=== PATIENT | male | born 1960 | race Caucasian/White ===

== ENCOUNTER 2019-05-23 04:47 | Inpatient (IN) | payer OTHER ==
[2019-05-23] VITALS (54 sets, daily range): BP systolic 89–191; BP diastolic 47–93
[~2019-05-23] VITALS: Ht 193 cm; Wt 129.9 kg
--- NOTE | ~2019-05-23 | HC ---
[facility] [place] [address] CONSULTATION Name: CATHI WINTERS Room #: 404-P [facility] IN ..#: [id number] Admission: 05/23/19 Attend Phys: Emilio Lux MD Discharge: Date of : 58 Report #: [id number] THIS REPORT FOR: //name// CC: Emilio Lux [facility] physician/PCP Roque Salazar DATE OF SERVICE: 06/08/2019 HISTORY OF PRESENT ILLNESS: This is a 59-year-old male originally admitted unresponsive on 05/23/[address] with noted seizure on the way to the hospital. History of ETOH abuse, had increased usage prior to admission. He was noted to have vomiting with concern with aspiration. He was diagnosed with an acute metabolic encephalopathy. He had acute respiratory failure, heart rate initially was in the 20s. He had severe lactic acidosis, history of diabetes mellitus with diabetic ketoacidosis. He was extubated on 06/01/2019. Antibiotics discontinued on 06/04/2019. Diabetic ketoacidosis was noted to have resolved. He has a resolving toxic metabolic encephalopathy. He has had some electrolyte abnormalities, which have improved. Bradycardia, is stable. We are seeing him in rehabilitation medicine consultation. PRIOR MEDICAL HISTORY: As delineated. He has a history of diabetes mellitus, coronary artery disease with prior PCI, and history of hypertension. FAMILY HISTORY: Noncontributory. SOCIAL HISTORY: He lives in a house with either one of his sisters, did not utilize gait aids premorbidly. There are 4 steps in. History of ETOH abuse 10 beers daily. He is home during the day, usually there is a [id number] that is there with him. He is noted to be unemployed. REVIEW OF SYSTEMS: He has some bilateral feet numbness, tingling and discomfort. No current complaints of chest pain, shortness of breath or abdominal discomfort. PHYSICAL EXAMINATION: GENERAL: He is an obese 59-year-old male, in no obvious distress. He is pleasant and alert. There is some latency to his responses. VITAL SIGNS: Temperature 98.4, pulse 90, respirations 18, blood pressure 157/82. HEENT: Facies are symmetric. EXTREMITIES: He has functional range of motion of both upper extremities. Strength is grade 4-/5. DTRs are trace to 1. Lower extremities: He has some decreased sensation bilateral large toes. 1+ distal lower extremity edema. Tone appeared to be intact. Strength is probably a grade 3+ to 4-/5. Sit to stand is min assist. Gait 130 feet min assist. He was noted to have some [address] [address] CONSULTATION Name: CATHI WINTERS Room #: 404-P [facility] IN .R.#: [id number] Admission: 05/23/19 Attend Phys: Emilio Lux MD Discharge: Date of : 58 Report #: [id number] impulsivity with lack of insight and is currently on a mechanical soft nectar thickened liquid diet. ASSESSMENT: A 59-year-old male with the following problems: 1. Toxic metabolic encephalopathy appears to be improved. 2. Acute respiratory failure. 3. ETOH abuse. 4. Diabetic ketoacidosis, which has resolved. 5. History of diabetes mellitus. 6. Concern with aspiration pneumonia. 7. Electrolyte abnormalities. 8. Alcohol detoxification/psychiatry involvement. PLAN: We are considering the patient for an acute in-hospital inpatient rehabilitation stay. We will be glad to follow along with you regarding his rehab therapy needs. He is making functional improvements with his mobility. We will be glad to follow along with you. By: 1201 1401 Cathi Artis MD /nt
[2019-05-23 05:16] LABS: HEMATOCRIT 52.2 % (42.0-52.0); HEMOGLOBIN 15.6 gm/dL (14.0-18.0); MCH 29.9 pg (26.0-34.0); MCHC 29.9 g/dL (28.0-37.0); MCV 99.8 fL (80.0-100.0); PLATELET COUNT 198 thou/uL (150-400); RBC 5.23 mil/uL (4.50-6.00); RDW 15.2 % (10.5-14.5); WBC 11.6 thou/uL (4.0-11.0)
[2019-05-23 05:17] LABS: HCO3 11.3 mmol/L (22.0-26.0); PCO2 46.8 mmHg (35.0-45.0); sO2 99.8 % (92.0-98.0)
[2019-05-23 05:19] LABS: pH 7.001 (7.360-7.450)
[2019-05-23 05:33] LABS: ANION GAP 29 mmol/L (7-16); BUN 13 mg/dL (7-18); CALCIUM 9.4 mg/dL (8.5-10.1); CHLORIDE 95 mmol/L (98-107); CO2 12 mmol/L (21-32); CREATININE 1.6 mg/dL (0.7-1.3); MAGNESIUM 1.9 mg/dL (1.8-2.4); POTASSIUM 5.1 mmol/L (3.5-5.1); SODIUM 136 mmol/L (136-145); TROPONIN-I <0.06 ng/mL (<0.06)
[2019-05-23 05:39] LABS: GLUCOSE 739 mg/dL (74-106); SALICYLATE 8.5 mg/dL (2.8-20.0)
[2019-05-23 05:58] LABS: URINE BILIRUBIN NEGATIVE (Negative); URINE BLOOD 2+ (Negative); URINE CLARITY SL CLOUDY; URINE COLOR YELLOW; URINE GLUCOSE-RANDOM* 3+ (Negative); URINE KETONES NEGATIVE (Negative); URINE LEUKOCYTES-REFLEX NEGATIVE (Negative); URINE NITRITE-REFLEX NEGATIVE (Negative); URINE PROTEIN (DIPSTICK) 1+ (Negative); URINE UROBILINOGEN 0.2 E.U./dl (0.2-1.0)
[2019-05-23 06:04] LABS: URINE REDUCING SUBSTANCE >2 %
[2019-05-23 06:07] LABS: AMP/METHAMP Negative (Negative); BARBITURATES Negative (Negative); BENZODIAZEPINES Negative (Negative); COCAINE Negative (Negative); METHADONE Negative (Negative); OPIATES Negative (Negative); PCP Negative (Negative)
[2019-05-23 06:20] LABS: SQUAMOUS 0-3 Few /LPF (0-3)
[2019-05-23 06:21] LABS: BACTERIA-REFLEX 1-9 Few /HPF (None Seen); CASTS None Seen /LPF (None Seen); CRYSTALS None Seen /LPF (None Seen); MUCUS 0-3 Light strn/LPF (None Seen); URINE RBC 3-10 Few /HPF (0-2); URINE WBC-REFLEX 0-5 Rare /HPF (0-5)
--- NOTE | 2019-05-23 06:42 | NUR ---
sister Navdeep Feliz here. [phone]. She reports long history of alcoholism. [phone]. Hospitalized at [facility] around 3 years ago. She reports liver issues, states his liver was drained. Diabetic, does not take anything to lower blood sugar. Stays with sister in [place] for now. No allergies.
--- NOTE | 2019-05-23 06:56 | NUR ---
Family updated regarding pt condition, tubes, machines
[2019-05-23 07:00] LABS: HCO3 22.7 mmol/L (22.0-26.0); PCO2 42.8 mmHg (35.0-45.0); PO2 173.5 mmHg (80.0-100.0); pH 7.342 (7.360-7.450); sO2 99.1 % (92.0-98.0)
[2019-05-23 07:36] LABS: ABSOLUTE NEUTROPHILS 5.8 thou/uL (1.4-8.2)
[2019-05-23 07:37] LABS: LARGE PLATELETS FEW
--- NOTE | 2019-05-23 10:07 | EKG ---
[place] [address] [facility] [place] [address] ELECTROCARDIOGRAM REPORT Name: CATHI WINTERS Room #: 238-P ADM IN M.R.#: [id number] Admission: 05/23/19 Attend Phys: Emilio Lux MD Discharge: Date of : 58 Report #: [id number] THIS REPORT FOR: //name// [facility] ED Test Date: 2019-05-23 Test Time: 06:11:23 Pat Name: CATHI WINTERS Department: Room: 238 Gender: M Health/Safety Job Titles: KELLEY : 1960 Requested By: Matt Puckett Order Number: [id number] MD: Waldemar Allen Measurements Intervals [place] Rate: 124 P: 67 TX: 154 QRS: 10 QRSD: 115 T: QT: 318 QTc: 457 Interpretive Statements Sinus tachycardia Occasional premature ventricular complexes Poor R wave progression Inferior infarct, age indeterminate No previous ECG available for comparison Electronically Signed On 05-23-2019 10:07:36 REAL ESTATE UNDERWRITER by Waldemar Allen [email or web address] <ELECTRONICALLY SIGNED> By: Waldemar Allen MD, FAC 05/23/19 1007 0611 0 Waldemar Allen MD, FACC /EPI
[2019-05-23 10:17] LABS: CALCIUM 8.7 mg/dL (8.5-10.1); CREATININE 1.4 mg/dL (0.7-1.3)
[2019-05-23 10:18] LABS: POTASSIUM 3.6 mmol/L (3.5-5.1)
[2019-05-23 11:03] LABS: ALBUMIN 2.7 g/dL (3.4-5.0); MAGNESIUM 1.9 mg/dL (1.8-2.4); PHOSPHORUS 2.2 mg/dL (2.5-4.9); TOTAL BILIRUBIN 0.5 mg/dL (<0.1-1.0); TOTAL PROTEIN 6.7 g/dL (6.4-8.2)
[2019-05-23 11:23] LABS: BE(vivo) -2.3 mmol/L (-2 to +3); HCO3 23.3 mmol/L (22.0-26.0); PCO2 42.7 mmHg (35.0-45.0); PO2 136.3 mmHg (80.0-100.0); pH 7.354 (7.360-7.450); sO2 98.6 % (92.0-98.0)
--- NOTE | 2019-05-23 12:10 | NUR ---
CONSULTED TO PLACE A PICC FOR A PATIENT ADMITTED TO THE ICU. ORDER AND CONSENT NOTED. THE PATIENT IS SEDATED AND NONRESPONSIVE TO TEACHING. THE RIGHT UPPER ARM BASILIC WAS WIDLEY PATENT. A #5F TRIPLE LUMEN POWER PICC WAS PLACED PER HOSPITAL POLICY AFTER A BEDSIDE TIMEOUT WAS COMPLETED. THE PICC WAS TRIMMED TO 50CM AND ADVANCED WITHOUT DIFFICULTY. A STAT CHEST XRAY WAS ORDERED FOR CONFIRMATION. RADIOLOGIST NOTED LINE NEEDED WITHDRAWN TO REPOSITION. LINE WITHDREW 4 MORE CM TO LEAVE PICC AT 7CM EXTERNAL WITH STERILE TECHNIQUE. A 2ND STAT CHEST XRAY WAS ORDERED FOR TIP VERIFICATION
--- NOTE | 2019-05-23 12:43 | 2DMMODE ---
[facility] [address] [place] [address] 2 D/M-MODE ECHOCARDIOGRAM Name: CATHI WINTERS Room #: 238-P [facility] IN ..#: [id number] Admission: 05/23/19 Attend Phys: Harmony Ingram Discharge: Date of : 58 Report #: [id number] THIS REPORT FOR: //name// APPROVED REPORT Study performed: 05/23/2019 11:30:14 EXAM: Comprehensive 2D, Doppler, and color-flow Echocardiogram Patient Location: ICU Room #: [facility] Status: routine BSA: 2.48 HR: 95 bpm BP: 91/51 mmHg Other Information Study Quality: Adequate Technically limited study due to body habitus. Indications Assess Ejection Fraction Echo Enhancing Agent Indication: Endocardial border delineation Agent(s) / Amount(s) Used: Optison 3 cc 2D Dimensions RVDd: 39.84 mm IVSd: 14.18 (7-11mm) LVOT Diam: 24.38 (18-24mm) LVDd: 53.17 mm PWd: 13.98 (7-11mm) Ascending Ao: 34.28 (22-36mm) LVDs: 38.66 (25-40mm) Aortic Root: 36.13 mm IVC: 19.00 mm Volumes Left Atrial Volume (Systole) Single Plane 4CH: 43.70 mL Single Plane 2CH: 45.72 mL LA ESV Index: 19.00 mL/m2 Aortic Valve AoV Peak Markus.: 1.51 m/s AO Peak Gr.: 12.67 mmHg LVOT Max P.25 mmHg LVOT Max V: 1.03 m/s LAMAR Vmax: 3.18 cm2 [facility] [address] [place] [address] 2 D/M-MODE ECHOCARDIOGRAM Name: CATHI WINTERS Room #: 238-P [facility] IN [facility]#: [id number] Admission: 05/23/19 Attend Phys: Harmony Ingram Discharge: Date of : 58 Report #: [id number] Mitral Valve E/A Ratio: 0.6 MV Decel. Time: 165.55 ms MV E Max Markus.: 0.59 m/s MV A Markus.: 0.94 m/s MV PHT: 48.01 ms IVRT: 134.95 ms Pulmonary Valve PV Peak Markus.: 0.93 m/s PV Peak Gr.: 3.51 mmHg Tricuspid Valve RAP Estimate: 5.00 mmHg Left Ventricle The left ventricle is normal size. Regional wall motion is not well visualized but grossly normal. Mild concentric left ventricular hypertrophy. The left ventricular systolic function is normal. The left ventricular ejection fraction is within the normal range. LVEF is 50-55%. Mild diastolic dysfunction is present (impaired relaxation pattern). Right Ventricle Right ventricle is at the upper limits of normal. The right ventricular systolic function is normal. Atria The left atrium size is normal. The right atrium size is normal. Aortic Valve The aortic valve is normal in structure. No aortic regurgitation is present. There is no aortic valvular stenosis. Mitral Valve The mitral valve is normal in structure. There is no mitral valve regurgitation noted. No evidence of mitral valve stenosis. Tricuspid Valve The tricuspid valve is normal in structure. There is no tricuspid valve regurgitation noted. Unable to assess PA pressure. Pulmonic Valve The pulmonary valve is normal in structure. There is no pulmonic valvular regurgitation. [facility] [place] [address] 2 D/M-MODE ECHOCARDIOGRAM Name: CATHI WINTERS Room #: 238-P ADM IN .R.#: [id number] Admission: 05/23/19 Attend Phys: Harmony Ingram Discharge: Date of : 58 Report #: [id number] Great Vessels The aortic root is normal in size. IVC is normal in size and collapses >50% with inspiration. Pericardium There is no pericardial effusion. <Conclusion> The left ventricular systolic function is normal. Mild concentric left ventricular hypertrophy. Regional wall motion is not well visualized but grossly normal. LVEF is 50-55%. Mild diastolic dysfunction The aortic valve is normal in structure. No aortic regurgitation or stenosis. The mitral valve is normal in structure. No mitral valve regurgitation Unable to assess pulmonary artery pressure. There is no pericardial effusion. <ELECTRONICALLY SIGNED> By: Waldemar Allen MD, FAC 05/23/19 1243 1243 124 Waldemar Allen MD, FAC /INF
[2019-05-23 13:48] LABS: HEMOGLOBIN 13.6 gm/dL (14.0-18.0)
[2019-05-23 14:03] LABS: CALCIUM 8.8 mg/dL (8.5-10.1); CREATININE 1.3 mg/dL (0.7-1.3)
[2019-05-23 14:04] LABS: POTASSIUM 2.9 mmol/L (3.5-5.1)
[2019-05-23 14:10] LABS: ALBUMIN 2.8 g/dL (3.4-5.0); TOTAL BILIRUBIN 0.4 mg/dL (<0.1-1.0); TOTAL PROTEIN 6.8 g/dL (6.4-8.2)
[2019-05-23 16:52] LABS: CALCIUM 7.6 mg/dL (8.5-10.1); CREATININE 1.3 mg/dL (0.7-1.3); MAGNESIUM 1.5 mg/dL (1.8-2.4); POTASSIUM 3.1 mmol/L (3.5-5.1)
--- NOTE | 2019-05-23 19:20 | NUR ---
ASSESSMENTES AND INTERVENTIONS DOCCUMENTED. PATIENT ARRIVED TO THE UNIT AT 0841 WITH ED RN AND RT. PATIENT INTUBATED AND LIGHTLY SEDATED. PATIENT TRANSFERRED TO ICU BED. PATIENT HAVING HIGH BS. INSULIN DRIP TITRATED ACCORDING TO PROTOCOL. FAMILY AT BEDSIDE. FAMILY UPDATED AND EDUCATED. CONSENT FOR PICC LINE RECIEVED AND PLACED. PATIENT INSULIN STATUS CHANGED FROM DKA TO ICU PROTOCOL PER DR. PETERSON. BS WNL, Q1 ACCUCHECKS DONE PER PROTOCOL. FAMILY AT BEDSIDE AND UPSET BECAUSE MISCOMMUNICATION BETWEEN PARAMEDICS AND FAMILY. THE SISTER STATES " HE WAS NOT DRINKING ALCOHOL AND I DID NOT FIND HIM ON THE FLOOR FACE DOWN. HE WAS IN THE CHAIR BREATHING FUNNY WITH SOMETHING COMING OUT OF HIS MOUTH." FAMILY COMFORTED. REPORT GIVEN TO OUTGOING INSPECTOR RN. THE POC IS TO CONTINUE TO MONITOR BLOOD GLUCOSE LEVELS.
--- NOTE | 2019-05-23 21:25 | HC ---
[facility] [place] [address] [address] CONSULTATION Name: CATHI WINTERS Room #: 238-P [facility] IN .R.#: [id number] Admission: 05/23/19 Attend Phys: Emilio Lux MD Discharge: Date of : 58 Report #: [id number] THIS REPORT FOR: //name// CC: Emilio Lux [facility] physician/PCP Roque Salazar DATE OF SERVICE: 05/23/2019 REASON FOR CONSULTATION: Possible bradycardia. HISTORY OF PRESENT ILLNESS: The patient is a 59-year-old gentleman with an unknown past history. This history comes from the triage Emergency Room intake records and Emergency Room notes. Apparently, he was found down by friends this morning. There are notes that he had a seizure, vomited, and may have aspirated. He is currently intubated and sedated with propofol and Versed. There are intake notes, but not primary records to suggest that he was bradycardic in the 20s in the setting of seizures and hypoxemia. No rhythm strips have been recorded. No heart block or rhythm abnormalities have been identified since his presentation. Multiple attempts have been made to contact family members without success. Hospital records have been requested as he was apparently hospitalized at [facility] sometime in the past, details unknown. ALLERGIES: It is not certain if he has any allergies. MEDICATIONS: Whether he takes medicines is unknown. FAMILY HISTORY, SOCIAL HISTORY, REVIEW OF SYSTEMS, PAST MEDICAL AND SURGICAL HISTORY: Entirely unknown. PHYSICAL EXAMINATION: GENERAL: Reveals a comatose gentleman, who is intubated. There is a moderate amount of bloody secretions from his mouth. VITAL SIGNS: Blood pressure is 91/63, heart rate of 100 and regular, temperature is 98 degrees. HEENT: There are neither xanthelasma, subcutaneous xanthomata, oral mucosal or digital cyanosis, or kyphoscoliosis present. CHEST: Reveals equal breath sounds. CARDIAC: Regular rate and rhythm with normal S1 and distant heart tones. ABDOMEN: Soft, obese, and nontender. EXTREMITIES: Without cyanosis, clubbing, or edema. Radial pulses are 2+. NEUROLOGIC: He is comatose. LABORATORY DATA: Chest x-ray: Vascularity is normal. Endotracheal tube is seen with its tip above the anjali. EKG demonstrates sinus tachycardia with [facility] [address] [place] [address] CONSULTATION Name: CATHI WINTERS Room #: [facility]- ADM IN M.R.#: [id number] Admission: 05/23/19 Attend Phys: Emilio Lux MD Discharge: Date of : 58 Report #: [id number] R-wave progression and inferior Q-waves. Sodium is 144, potassium 3.6, creatinine 1.4, glucose 460, alkaline phosphatase 246. Lactic acid 20.6. Troponin 0.14. ProBNP of 250. Acetaminophen level 0. Alcohol level 0. Acetone levels elevated at 0.28. Tox screen is negative. White count 11.6, hemoglobin 15, hematocrit 52, platelet count 198. The pH is 7.32, pCO2 of 42, pO2 173. Cultures have been obtained. IMPRESSION: 1. Diabetic ketoacidosis. 2. Respiratory failure, vomiting, with probable aspiration. 3. Possible history of coronary artery disease, details unknown. 4. Possible bradycardia in the setting of hypoxemia and seizure prior to arrival. 5. Facial and head trauma with oropharyngeal bleeding. 6. History of alcohol use. 7. Probable sleep apnea. RECOMMENDATIONS: 1. Serial cardiac enzymes. 2. Echocardiogram with Doppler. 3. There are many unanswered questions regarding presentation and medical history. Further attempts will be made clarifying this. 4. 64 minutes of critical care time. <ELECTRONICALLY SIGNED> By: Waldemar Allen MD, FACC 05/23/19 2125 1111 1137 Waldemar Allen MD, FACC /nt
--- NOTE | 2019-05-23 21:52 | EKG ---
[address] [place] [address] ELECTROCARDIOGRAM REPORT Name: CATHI WINTERS Room #: 238-P ADM IN M.R.#: [id number] Admission: 05/23/19 Attend Phys: Emilio Lux MD Discharge: Date of : 58 Report #: [id number] THIS REPORT FOR: //name// [facility] Test Date: 2019-05-23 Test Time: 11:19:29 Pat Name: CATHI WINTERS Department: Room: 238 P Gender: M Facepiece Line Supervisor: Anival GOODWIN : 1960 Requested By: Waldemar Allen Order Number: [id number] MD: Waldemar Allne Measurements Intervals [place] Rate: 90 P: 59 OR: 184 QRS: 10 QRSD: 116 T: 161 QT: 396 QTc: 485 Interpretive Statements Sinus rhythm Atrial premature complex Nonspecific ST and T wave abnormality Compared to ECG 05/23/2019 06:11:23 Atrial premature complex(es) now present Sinus tachycardia no longer present Ventricular premature complex(es) no longer present nonspecific change in the ST and T-wave segments Electronically Signed On 05-23-2019 21:52:39 SAFETY LEAD by Waldemar Allen [email or web address] <ELECTRONICALLY SIGNED> By: Waldemar Allen MD, FAC 05/23/19 2152 1119 1119 Waldemar Allen MD, FAC /EPI
[2019-05-24] VITALS (22 sets, daily range): BP systolic 94–143; BP diastolic 49–78
[2019-05-24 05:17] LABS: BE(vivo) -1.2 mmol/L (-2 to +3); HCO3 23.5 mmol/L (22.0-26.0); PCO2 39.7 mmHg (35.0-45.0); PO2 129.3 mmHg (80.0-100.0); pH 7.391 (7.360-7.450); sO2 98.6 % (92.0-98.0)
[2019-05-24 06:36] LABS: ABSOLUTE NEUTROPHILS 7.2 thou/uL (1.4-8.2); BASOPHILS 0.5 % (0.0-2.0); EOSINOPHILS 0.2 % (0.0-3.0); HEMATOCRIT 39.1 % (42.0-52.0); HEMOGLOBIN 12.7 gm/dL (14.0-18.0); LYMPHOCYTES 13.6 % (24.0-44.0); MCH 29.5 pg (26.0-34.0); MCHC 32.5 g/dL (28.0-37.0); MONOCYTES 11.2 % (1.0-8.0); PLATELET COUNT 144 thou/uL (150-400); POLYS 74.5 % (36.0-66.0); RBC 4.31 mil/uL (4.50-6.00); RDW 14.3 % (10.5-14.5); WBC 9.7 thou/uL (4.0-11.0)
[2019-05-24 06:46] LABS: MCV 90.7 fL (80.0-100.0)
[2019-05-24 06:52] LABS: PHOSPHORUS 3.7 mg/dL (2.5-4.9); TROPONIN-I 0.08 ng/mL (<0.06)
[2019-05-24 07:28] LABS: ALBUMIN 2.6 g/dL (3.4-5.0); CALCIUM 8.2 mg/dL (8.5-10.1); CREATININE 1.7 mg/dL (0.7-1.3); POTASSIUM 3.3 mmol/L (3.5-5.1); TOTAL BILIRUBIN 0.5 mg/dL (<0.1-1.0); TOTAL PROTEIN 6.6 g/dL (6.4-8.2)
--- NOTE | 2019-05-24 12:58 | EKG ---
[place] [address] [facility] [place] [address] ELECTROCARDIOGRAM REPORT Name: CATHI WINTERS Room #: 238-P ADM IN M.R.#: [id number] Admission: 05/23/19 Attend Phys: Emilio Lux MD Discharge: Date of : 58 Report #: [id number] THIS REPORT FOR: //name// [facility] Test Date: 2019-05-24 Test Time: 07:32:08 Pat Name: CATHI WINTERS Department: Room: 238 P Gender: M Sand Carrier: ERIKA : 1960 Requested By: Waldemar Allen Order Number: [id number] MD: Waldemar Allen Measurements Intervals [place] Rate: 110 P: 37 NV: 162 QRS: 32 QRSD: 116 T: 190 QT: 369 QTc: 500 Interpretive Statements Sinus tachycardia Nonspecific ST and T wave abnormality Poor R wave progression Compared to ECG 05/23/2019 11:19:29 Atrial premature complexes are no longer present Electronically Signed On 05-24-2019 12:58:34 OCCUPATIONAL PHYSICIAN by Waldemar Allen [email or web address] <ELECTRONICALLY SIGNED> By: Waldemar Allen MD, [facility] 05/24/19 1258 Waldemar Allen MD, [facility] /EPI
--- NOTE | 2019-05-24 13:30 | HC ---
[facility] [place] [address] CONSULTATION Name: CATHI WINTERS Room #: 238-P [facility] IN .R.#: [id number] Admission: 05/23/19 Attend Phys: Emilio Lux MD Discharge: Date of : 58 Report #: [id number] THIS REPORT FOR: //name// CC: Emilio Lux [facility] physician/PCP Roque Salazar GASTROINTESTINAL CONSULTATION HISTORY OF PRESENT ILLNESS: The patient is a 59-year-old male who apparently was in an otherwise normal state of health until this morning when he was found barely responsive by his sister. Apparently, he has been living at his sister's house for the last 4 months. The history I received was from his other sister and from the chart. He presented with severe ketoacidosis and I have been asked to see him for possible coffee-ground emesis. He is unable to give any history. Apparently, he does drink alcohol, but has not abused alcohol per his sister's history. He was fine last evening per his other sister's history and what she related to the sister I talked with. His medical history is detailed in the chart, but includes coronary artery disease and coronary stents, the details of which are not available to me. He had some sort of infection, which required chronic drainage from a tube in his flank. The sister thought that it was either from the skin or draining another site. That was greater than 6 months ago. He has had a history of diabetes and he has presented with DKA in the past to [facility] per her history. His medications currently include vancomycin, piperacillin, propofol, albuterol, IV fluids, insulin drip, PPI drip. REVIEW OF SYSTEMS: Not possible. PHYSICAL EXAMINATION: VITAL SIGNS: Afebrile. Vital signs stable. He presented with bradycardia, but his heart rate is 97. HEENT: Nonicteric. NECK: No JVD, thyromegaly or bruits. CARDIOVASCULAR: Regular. LUNGS: Clear anteriorly. ABDOMEN: Soft, obese, nondistended. He does have periumbilical nonreducible hernia. He does not appear to have any tenderness on exam, although he is intubated and sedated. Extremities, neurologic exam and rectal exam were deferred. PERTINENT LABORATORY DATA: On presentation, sodium 144, potassium 3.6, chloride 95, venous bicarbonate 12, BUN 13, creatinine 1.6, glucose 739. His liver tests were normal. His lactate was 20.6. Troponin 0.14. Alcohol, Tylenol and drug screen negative. He has had a chest x-ray, which reveals no acute cardiopulmonary process. Head CT normal. [address] [address] CONSULTATION Name: CATHI WINTERS Room #: 238-P [facility] IN ..#: [id number] Admission: 05/23/19 Attend Phys: Emilio Lux MD Discharge: Date of : 58 Report #: [id number] In summary, the patient presents with what looks like diabetic ketoacidosis and probable coffee-ground NG aspirate secondary to an ileus secondary to his critical illness and severe DKA. He does have a periumbilical hernia, which is nonreducible, although has had no complaints leading up to his presentation of abdominal pain or evidence of incarceration. Perhaps a CT of the abdomen and pelvis will be reasonable based on his progress while in the ICU. A significant GI bleed is not obvious at this time. I agree with PPI drip and close hemoglobin monitoring. We will follow. I appreciate the opportunity to participate in his care. <ELECTRONICALLY SIGNED> By: Buddy Fuentes MD 05/24/19 1330 1259 1336 Buddy Fuentes MD /nt
[2019-05-24 16:40] LABS: CREATININE 1.4 mg/dL (0.7-1.3); POTASSIUM 3.4 mmol/L (3.5-5.1)
--- NOTE | 2019-05-24 18:08 | NUR ---
ASSUMED CARE @ 0700 05/24/19, PT ASSESSMENTS AND VSS COMPLETE PER ICU PROTOCOL. DR PETERSON INFORMED ABOUT LOW OUTPUT AND ELEVATED LACTIC ACID, FLIUDS RATE INCREASED. DR PETERSON AND DR HOLT CALLED ABOUT LOW URINED OUTPUT, 500ML BOLUS ORDERED, PT STILL NOT MAKIN URINE, RN TRIES TO FLUSH THE MCCONNELL, RESISTANCE ENCOUNTERED, RN CHANGES OUT MCCONNELL CATHETER AND NOTICES CLOTS COMING OUT OF THE NEW MCCONNELL CATHETER, THIS CLEAR OUT AND PT HAS 1000ML OF URINE COME OUT. WILL CONTINUE TO MONITOR.
[2019-05-24 20:33] LABS: MAGNESIUM 1.9 mg/dL (1.8-2.4); POTASSIUM 3.5 mmol/L (3.5-5.1)
[2019-05-25] VITALS (16 sets, daily range): BP systolic 114–181; BP diastolic 71–111
[2019-05-25 05:27] LABS: BE(vivo) -2.6 mmol/L (-2 to +3); HCO3 21.5 mmol/L (22.0-26.0); PO2 107.5 mmHg (80.0-100.0); pH 7.406 (7.360-7.450)
--- NOTE | 2019-05-25 06:00 | NUR ---
REMAINS INTUBATED AND SEDATED PROPOFOL 30 MCG AND VERSED GTT AT 5 MG BATHED. DOES NOT FOLLOW ANY COMMANDS EVEN WITH PROPOFOL OFF. REMAINS ANURIC
[2019-05-25 06:20] LABS: ABSOLUTE NEUTROPHILS 5.4 thou/uL (1.4-8.2); BASOPHILS 0.6 % (0.0-2.0); EOSINOPHILS 2.1 % (0.0-3.0); HEMATOCRIT 38.4 % (42.0-52.0); HEMOGLOBIN 12.4 gm/dL (14.0-18.0); LYMPHOCYTES 15.2 % (24.0-44.0); MCH 29.7 pg (26.0-34.0); MCHC 32.4 g/dL (28.0-37.0); MCV 91.5 fL (80.0-100.0); MONOCYTES 10.1 % (1.0-8.0); PLATELET COUNT 130 thou/uL (150-400); RBC 4.19 mil/uL (4.50-6.00); RDW 14.7 % (10.5-14.5); WBC 7.5 thou/uL (4.0-11.0)
[2019-05-25 06:32] LABS: ALBUMIN 2.3 g/dL (3.4-5.0); ANION GAP 10 mmol/L (7-16); BUN 15 mg/dL (7-18); CALCIUM 7.6 mg/dL (8.5-10.1); CHLORIDE 109 mmol/L (98-107); CO2 22 mmol/L (21-32); CREATININE 1.2 mg/dL (0.7-1.3); GLUCOSE 124 mg/dL (74-106); POTASSIUM 4.1 mmol/L (3.5-5.1); SGOT 13 U/L (15-37); SGPT 15 U/L (30-65); SODIUM 141 mmol/L (136-145); TOTAL PROTEIN 6.3 g/dL (6.4-8.2); TROPONIN-I <0.06 ng/mL (<0.06)
--- NOTE | 2019-05-25 09:55 | NUR ---
Nutrition: if unable to extubated today, REC start enteral feeds of Vital HP to reach goal 75 mL/hr.
--- NOTE | 2019-05-25 16:34 | NUR ---
ASSUMED CARE @ 0700 05/25/19, PT ASSESSMENTS AND VSS COMPLETE PER ICU PROTOCOL. @ APPROXIMATELY 1545 PT VENT SETTING CHANGED TO CPAP, PT OFF PROPOFOL AND VERSED SINCE 953, PRECEDEX STOPPED @ 12PM. @ 1600 PT STARTS TO DESAT IN THE 70'S, PT SBP 181, PT LOOKED LIKE HE WAS FIGHTING THE TUBE. PT SWITCHED BACK TO A/C, PRECEDE RESTARTED, SATS STILL IN THE 80'S, RT CALLED TO THE BEDSIDE, FOI2 INCREASED TO 50%, SATS IN THE 90'S, BP 122/81. WILL CONTINUE TO MONITOR.
--- NOTE | 2019-05-25 16:47 | NUR ---
INITIAL ASSESSMENT: Pt evaluated for d/c planning needs. Reviewed chart and spoke with nurse. Pt is currently intubated. Called pt's sisters Rosalva ([phone]) and Stephanie ([phone]) and left messages. Pt reportedly with living with sister Rosalva prior to admission to the hospital. Will await return call from sisters re: d/c planning needs.
--- NOTE | 2019-05-25 17:12 | HC ---
[facility] [address] CONSULTATION Name: CATHI WINTERS Room #: 238-P [facility] IN M.R.#: [id number] Admission: 05/23/19 Attend Phys: Emilio Lux MD Discharge: Date of : 58 Report #: [id number] THIS REPORT FOR: //name// CC: Emilio Lux FAM physician/PCP Roque Salazar DATE OF SERVICE: 05/25/2019 CONSULTING PHYSICIAN: Dr. Emilio Lux. REASON FOR CONSULTATION: Diabetic ketoacidosis, uncontrolled type 2 diabetes mellitus. HISTORY OF PRESENT ILLNESS: This is a 59-year-old male patient who presented on 05/23/2019 to [facility] Emergency Department after having been found unresponsive by friends and after having been witnessed to have a seizure en route to the hospital. The patient's background is noted for alcoholism as well as type 2 diabetes mellitus. When he arrived to [facility], the patient was found to be in acute respiratory failure with hypoxemia and was intubated for airway protection and respiratory support, and he was also found to be in diabetic ketoacidosis as well as lactic acidosis. He was subsequently admitted to the ICU for further care and monitoring. I was not able to interview the patient due to his sedated and intubated state and I have most information derived from his electronic medical chart. I have also discussed his current care and past events with the caring nursing staff at length. Currently, the patient is being dealt for the issues of acute metabolic encephalopathy, acute respiratory failure with possible aspiration pneumonia, severe lactic acidosis as well as DKA. Also, he was at some point at least noted for the issue of coffee-ground emesis as well as a concern for bradycardia. Little is known to me about his background as a type 2 diabetic. I do not know what his outpatient medications were. PAST MEDICAL HISTORY: Type 2 diabetes mellitus, obesity, alcohol abuse, coronary artery disease, status post PCI. OUTPATIENT MEDICATIONS: None known. ALLERGIES: No known drug allergies. FAMILY HISTORY: Unknown. [facility] [address] [place] [address] CONSULTATION Name: CATHI WINTERS Room #: 238-[facility] IN [facility].#: [id number] Admission: 05/23/19 Attend Phys: Emilio Lux MD Discharge: Date of : 58 Report #: [id number] SOCIAL HISTORY: Unknown. REVIEW OF SYSTEMS: Could not be obtained at this point in time due to the patient's sedated and intubated state. PHYSICAL EXAMINATION: GENERAL: male patient who is deeply sedated and intubated. VITAL SIGNS: Blood pressure is 117/64 mmHg, heart rate is 102 beats per minute, respiration 22 per minute, temperature 36.5 degrees. CONSTITUTIONAL: The patient is sedated, intubated, does not seem to be in pain or distress. HEENT: Anicteric sclerae. NECK: Supple without JVD, carotid bruits or thyromegaly. CHEST: Noted for limited air entry bilaterally with scattered rales and rhonchi. HEART: Regular rate and rhythm without murmurs or gallops. ABDOMEN: Obese, but soft and lax. No guarding, no organomegaly. Sluggish bowel sounds. EXTREMITIES: Lower extremity exam noted for trace ankle edema bilaterally. No skin breaks. Pedal pulses are faint. NEUROLOGIC: Sedated. Moves extremities spontaneously. PSYCHIATRIC: Cannot evaluate due to his sedated state. SKIN: No major ulceration or other skin abnormalities. LABORATORY DATA: Blood glucose over the past 48 hours have been maintained rather well between 120 and 160 mg/dL. On arrival, the patient had a blood glucose that was over 500 mg/dL. Sodium 141, potassium 4.1, chloride 109, CO2 of 22, anion gap 10, it was 29 on arrival; BUN 15, creatinine 1.2, glucose 124, AST 13, total bilirubin 1.0, calcium 7.6, phosphorus 3.7, magnesium 1.9, alkaline phosphatase 104, ALT 15, total protein 6.3, albumin 2.3, EGFR 62. Lactic acid 2.3. BNP 223. White blood count 7.5, hemoglobin 12.4, hematocrit 38.4, platelets 130. ASSESSMENT AND PLAN: 1. Diabetic ketoacidosis. The patient's presentation is certainly consistent with diabetic ketoacidosis that has resolved rather well with the use of intravenous fluids and intravenous insulin support. His anion gap on current blood glucose levels at the present time suggests a full resolution of diabetic ketoacidosis. 2. Type 2 diabetes mellitus. As noted above, the patient is known to have a background for type 2 diabetes mellitus; however, we do not know much his chart detail beside that fact. I am unaware of his outpatient antidiabetic treatment regimen, but it appears that the patient has had a significant noncompliant outlook in the past. I will attempt to develop a better understanding about his diabetic state by obtaining a hemoglobin A1c. In the immediate setting, the [facility] [address] [place] [address] CONSULTATION Name: CATHI WINTERS Room #: 238-P [facility] IN M.R.#: [id number] Admission: 05/23/19 Attend Phys: Emilio Lux MD Discharge: Date of : 58 Report #: [id number] patient is maintained on IV insulin and is managed as per IV insulin protocol. His blood glucose control is excellent. His most current insulin need is about 3 units per hour; however, looking at his 24-hour needs, it seems that he averages at about 4-1/2 units per hour. I will not yet transitioned the patient to subcutaneous insulin therapy until the patient is initiated on some form of nutrition and/or extubated as a transition to subcutaneous insulin prior to these events with threaten glycemic instability and would give us a rather difficult task to maintain control with subcutaneous insulin. In short, keep the current IV insulin protocol and keep glucose monitoring as per protocol as well. 3. Hypocalcemia. The patient was noted to have hypocalcemia; however, this is normalized at about 8.8 when corrected for the albumin deficiency. No further workup or management as needed. 4. Respiratory failure. The patient is currently on mechanical ventilation due to acute hypoxemic respiratory failure and possible aspiration pneumonia. I understand that sedation is being tapered off gradually in preparation for potential CPAP trial later today. The pulmonary team is following closely. 5. Seizure activity. The patient was witnessed of having a seizure on presentation. He is being followed by Neurology. He is currently on Versed and propofol. 6. Thyroid dysfunction. Given the patient's reported bradycardia, diabetic state, I would like to assess his thyroid function indices specifically with TSH and free T4 to have a better understanding of his thyroid function outlook. I have reviewed the patient's clinical care notes and laboratory results as well as other pertinent clinical data from his electronic chart for well over 35 minutes. I appreciate this consultation by Dr. Lux. <ELECTRONICALLY SIGNED> By: Ahzhanna An MD 05/25/19 1712 [id number] Chilo An MD /nt
[2019-05-25 21:01] LABS: BE(vivo) -6.1 mmol/L (-2 to +3); HCO3 20.2 mmol/L (22.0-26.0); PCO2 42.8 mmHg (35.0-45.0); PO2 66.5 mmHg (80.0-100.0); sO2 91.1 % (92.0-98.0)
[2019-05-25 21:03] LABS: pH 7.292 (7.360-7.450)
--- NOTE | 2019-05-25 22:41 | NUR ---
DR. HOLT NOTIFIED ABOUT PT CHANGE IN CONDITION AROUND 2029. PT USING ACCESSORY MUSCLE, OVERALL LOOKING UNCOMFORTABLE. ACTIVAN PRN GIVEN PER PREVIOUSLY TOLD BY DR. HOLT TO SIXTO CASAREZ. DR. HOLT GAVE AN ORDER FOR STAT ABG AND SPOT CHECK CVP. LAB VALUES REPORTED TO DR HOLT.ORDER GIVEN FOR 1AMP BICARB, 40MG LASIX AND IVF RATE DECREASED TO 75ML/HR AND ABG IN AM. CONTINUE TO MONITOR.
[2019-05-26] VITALS (58 sets, daily range): BP systolic 130–208; BP diastolic 57–116
[2019-05-26 00:08] LABS: GLYCOHEMOGLOBIN (HGB A1C) 11.9 % (4.8-5.6)
[2019-05-26 05:00] LABS: HCO3 20.5 mmol/L (22.0-26.0); PCO2 36.1 mmHg (35.0-45.0); PO2 91.6 mmHg (80.0-100.0); pH 7.372 (7.360-7.450); sO2 96.9 % (92.0-98.0)
--- NOTE | 2019-05-26 05:30 | NUR ---
PT MAXED ON PRECEDEX DRIP. NO SEDATION VACATION PERFORMED PT IS FIGHTING THE VENT. PRN ACTIVAN HELPED TO CALM DOWN THE PT AND LESS USE OF ACCESSORY MUSCLE. PT INSULIN DRIP TURNED OFF AT 0500 AM PER INSULIN PROTOCCOL. PT HYPERTENSIVE SYSTOLIC AROUND 180'S. hYDRALAZINE WAS GIVEN WITH NO SUCCESSFUL RESULTS. LOPRESSOR WAS GIVEN WITH NO SUCCESS WELL. PT HAD ALMOST 4000 URINE OUTPUT.CHART CHECK. REPORT GIVEN TO SIXTO CRUZ. PT SLOWLY PROGRESSING TOWARDS GOALS.
[2019-05-26 05:32] LABS: HEMATOCRIT 44.4 % (42.0-52.0); HEMOGLOBIN 14.2 gm/dL (14.0-18.0)
[2019-05-26 07:44] LABS: CALCIUM 8.6 mg/dL (8.5-10.1); CREATININE 1.2 mg/dL (0.7-1.3); POTASSIUM 4.2 mmol/L (3.5-5.1)
--- NOTE | 2019-05-26 11:37 | NUR ---
ASSESSMENTS AND INTERVENTIONS DOCCUMENTED. PATIENT ANXIOUS AFTER SHIFT CHANGE AND USING ACESSORY MUSCLES TO BREATHE. ATIVAN GIVEN AND PATIENT CALMED DOWN. DR. MOSS PAGED AND INFORMED ABOUT HIGH BP AND PATIENT STATUS. VERSED DRIP ORDERED. PATIENT HAVING HYPERTENSION. DR PANIAGUA PAGED, ORDERS FOR BP MEDICATIONS RECIEVED.
--- NOTE | 2019-05-26 15:39 | NUR ---
SISTER CAMERON HERE VISITING WITH PT. SISTER WANTS IT WRITTEN IN PT CHART THAT SHE IS THE PERSON WHO FOUND THE PATIENT UNRESPONSIVE
--- NOTE | 2019-05-26 15:45 | NUR ---
PT REMAINS ON VENT AND SEDATED. CLINICAL INFO REVIEWED. SPOKE WITH PT'S SISTER JI THIS AFTERNOON AND LEFT VM FOR SISTER CAMERON WITH CM CONTACT. JI INDICATES PT LIVES EITHER WITH HER IN [place], [place]. OR WITH OTHER SISTER CAMERON IN [place], [place]. JI INDICATES SHE HAS NOT SEEN PT IN A COUPLE MONTHS BUT TALKS TO HIM DAILY. PT IS WITHOUT MEDICAL INSURANCE, NOT WORKING. JI INDICATES PT LOST JOB R/T FREQUENT ILLNESS. PT HAS DIABETES, HTN, CAD WITH HX OF CORONARY STENTS. DOES NOT TAKE ANY MEDS CANNOT AFFORD THEM AND NO PRIMARY CARE. PT IS A CITIZEN. NO MEDICAL OR FINANCIAL DPOA IN PLACE PER JI. [facility] REFERRAL AND WILL NEED TO FOLLOW FOR MEDICAID/DISABILITY CHAVEZ WHEN EXTUBATED AND ALERT. WILL NEED SAFETY NET CLINIC INFO AND MEDS VOUCHED AT [place].
--- NOTE | 2019-05-26 18:15 | NUR ---
KG WT ON DRIPS CHANGED TO ADMIT WT. PER PROTOCOL
--- NOTE | 2019-05-26 18:21 | NUR ---
ASSUMED CARE AT 1130. PT IS ON VENT AND SEDATED AT THIS TIME. PT HAS TOLERATED VENT WITH OUT ANY PROBLEMS TODAY. PER PT IS TO REST AND NO CPAP TRIAL TODAY.
[2019-05-27] VITALS (46 sets, daily range): BP systolic 111–157; BP diastolic 58–89
[2019-05-27 04:33] LABS: HEMATOCRIT 41.3 % (42.0-52.0); HEMOGLOBIN 13.4 gm/dL (14.0-18.0); MCH 29.7 pg (26.0-34.0); MCHC 32.4 g/dL (28.0-37.0); MCV 91.7 fL (80.0-100.0); RBC 4.5 mil/uL (4.50-6.00); RDW 14.9 % (10.5-14.5); WBC 9.7 thou/uL (4.0-11.0)
[2019-05-27 04:45] LABS: CALCIUM 8.3 mg/dL (8.5-10.1); POTASSIUM 4.3 mmol/L (3.5-5.1)
--- NOTE | 2019-05-27 07:55 | NUR ---
NO SEDATION VACATION. UP ON PRECEDEX AND VERSED. PT ANXIOUS THROUGHOUT THE NIGHT. PRN ACTIVAN GIVEN. CHART CHECK. PT SLOWLY PROGRESSING TOWARDS GOALS. REPORT GIVEN TO SIXTO MCFARLANE.
--- NOTE | 2019-05-27 10:15 | NUR ---
Nutrition: Tube feeds starting at 25 ml/hr. Vital HP to reach goal of 75 mL/hr Caution pt may be refeeding sydrome risk. Current Mg level is low. Replete as appropriate and do not increase rate if lytes drop.
[2019-05-28] VITALS (32 sets, daily range): BP systolic 120–179; BP diastolic 62–105
[2019-05-28 05:16] LABS: HEMOGLOBIN 12.9 gm/dL (14.0-18.0)
[2019-05-28 05:55] LABS: CALCIUM 8.3 mg/dL (8.5-10.1); CREATININE 0.9 mg/dL (0.7-1.3); MAGNESIUM 1.5 mg/dL (1.8-2.4); POTASSIUM 3.8 mmol/L (3.5-5.1)
--- NOTE | 2019-05-28 07:00 | NUR ---
No changes of conditions in this shift. Start TF tonight, so far he is tolerating very well. Continue insulin gtt per protocol; see flow sheet for details.
--- NOTE | 2019-05-28 17:11 | NUR ---
PT IS NONRESPONSIVE. ON SEDATION DRIPS OF PRECEDIX AND VERSED. FAMILY AT BEDSIDE FOR SUPPORT. REMAINS ON THE VENT AT THIS TIME. SCDS ON BILATERAL. REMAINS ON INSULIN DRIP WITH DKA. TAKEN TO CT TODAY FOR DIAGNOSTIC. CONTINUE TO PROGRESS TOWARDS GOALS AND TREATMENT PLAN. BLOOD PRESSURE IS STABLE. ONGOING NURSING CARE AND TREATEMENT AT THIS TIME.
--- NOTE | 2019-05-28 22:45 | NUR ---
Able to wean off esmolol gtt. BP had been control with IV lopressor. Will continue to monitor his BP and HR closely.
[2019-05-29] VITALS (56 sets, daily range): BP systolic 94–172; BP diastolic 58–97
[2019-05-29 05:26] LABS: HEMATOCRIT 37.5 % (42.0-52.0); HEMOGLOBIN 12.2 gm/dL (14.0-18.0); MCH 30.1 pg (26.0-34.0); MCHC 32.6 g/dL (28.0-37.0); MCV 92.2 fL (80.0-100.0); RBC 4.06 mil/uL (4.50-6.00); RDW 14.6 % (10.5-14.5); WBC 7.2 thou/uL (4.0-11.0)
[2019-05-29 05:35] LABS: CALCIUM 8.3 mg/dL (8.5-10.1); CREATININE 0.9 mg/dL (0.7-1.3); MAGNESIUM 1.8 mg/dL (1.8-2.4); POTASSIUM 3.2 mmol/L (3.5-5.1)
--- NOTE | 2019-05-29 07:00 | NUR ---
Pt is more awakes this am, still not following any commands but will move his UE spontaneously. BP had been control, HR were in 90's. Continue to be on Insulin gtt , see flow sheet for titration.His BS has been 120's-150's. Mely TF well. He is more swellon today, gain nearly 6 lbs over 24 hrs. Will pass message to day RN about my concerns of fluid overload. Slowly making progress in this shift.
--- NOTE | 2019-05-29 08:00 | NUR ---
ASSUMED CARE, POTASSIUM DRIP INFUSING FOR SERUM K OF 3.2. INSULIN DRIP TITRATED TO KEEP BLOOD GLUCOSE 90 TO 130, TUBE FEEDING RATE INCREASED TO 50ML/HR. MORE AWAKE LOOKING AROUND.
--- NOTE | 2019-05-29 13:29 | HC ---
[facility] [place] [address] CONSULTATION Name: CATHI WINTERS Room #: 238-P [facility] IN ..#: [id number] Admission: 05/23/19 Attend Phys: Emilio Lux MD Discharge: Date of : 58 Report #: [id number] THIS REPORT FOR: //name// CC: Emilio Lux [facility] physician/PCP Roque Salazar DATE OF SERVICE: 05/23/2019 The patient denies seizures. HISTORY OF PRESENT ILLNESS: This is a 59-year-old male patient who is unable to provide any history. I had talked to the Emergency Room physician and I talked to the nurses. I talked to the patient's sister. Sister does not provide any good history to me about alcohol intake, but he provides other history reasonably well. This patient lives with his sister. He went to sleep all right. When the sister got up in the morning, she found him on the floor. It is not clear how long he was on the floor. There is some question of seizure activity noticed, but is not certain at all. The sister indicated that he did not notice any seizure activity and the nurses have not noticed any seizure activity either. REVIEW OF SYSTEMS: Indicate that he was admitted to [facility] about 3 years ago. Very high blood sugar. He was discharged on multiple medications including antihypertensive and insulin. He did not take his antihypertensive and looks like he did not monitor his blood sugar on a regular basis because it was again found to be more than 700. He is being treated for that. Review of systems indicates that he drinks alcohol. The sister did not give me a good history, how much he drinks. He usually goes to [facility] and those records are not available yet. 14-point review of system was carried out from the sister and she indicated the patient has always been obese. He has never been found to have sleep apnea. When he was picked up this time, it looks like he had hypoxemia and bradycardia. This is all the 14-point review she knew. PAST MEDICAL HISTORY: Positive for similar episode of uncontrolled hypertension about 3 years ago. FAMILY HISTORY: Unremarkable. SOCIAL HISTORY: He drinks alcohol, but sister would not tell me how much he drinks. He does not smoke, according to her. PHYSICAL EXAMINATION: GENERAL: His examination is limited. He is sedated. He does not have any response. HEENT: Pupils look symmetrical, but reaction is sluggish at best. No meningeal [facility] [address] [place] [address] CONSULTATION Name: CATHI WINTERS Room #: 238-P [facility] IN [facility]#: [id number] Admission: 05/23/19 Attend Phys: Emilio Lux MD Discharge: Date of : 58 Report #: [id number] signs. He is intubated. VITAL SIGNS: His blood pressure is 91/63, respirations 22, pulse is under. LABORATORY DATA: White count is 11.6. Lactic acid is 20.6. IMAGING STUDIES: He did have a CT scan of the head when he came in and that was unremarkable. IMPRESSION: It is not clear if the patient had a seizure even if he did. He drinks alcohol heavily and the best I can tell and he had pretty significant metabolic problem. He is already on propofol, which has a pretty significant anticonvulsant effect. RECOMMENDATIONS: 1. EEG, which is already ordered. 2. We will check TSH and vitamin B12. 3. We will do the further workup if the patient's condition stabilizes. Thank you very much for this referral. <ELECTRONICALLY SIGNED> By: Thony Gomes MD 05/29/19 1329 [id number] Thony Gomes MD /nt
--- NOTE | 2019-05-29 13:30 | EEG ---
[facility] [place] [address] ELECTROENCEPHALOGRAM Name: VIANEYIESHA Room #: 238-P [facility] IN M.R.#: [id number] Admission: 05/23/19 Attend Phys: Emilio Lux MD Discharge: Date of : 58 Report #: [id number] THIS REPORT FOR: //name// CC: Emilio Lux [facility] physician/PCP Roque Salazar DATE OF SERVICE: 05/24/2019 This patient is being evaluated for altered mental status and the possibility of seizure. EEG was done by placing the electrode by standard 10-20 system of electrode placement. Both referential and sequential montages were used for recording. Background activity in this patient's EEG is very low voltage. It is difficult to determine with certainty the frequency. It is probably about 5 microvolts. Photic stimulation is unremarkable. IMPRESSION: This is a severely abnormal EEG consistent with severe encephalopathy. Whether this encephalopathy is because of propofol he is on or because of some other condition like hypoxia is not clear and serial EEG is required to evaluate that further. Thank you very much for this referral. <ELECTRONICALLY SIGNED> By: Thony Gomes MD 05/29/19 1330 1632 [id number] Thony Gomes MD /nt
--- NOTE | 2019-05-29 13:55 | NUR ---
FOLLOWING [facility] DC PLANNING. CLINICAL INFO REVIEWED. PT REMAINS ON VENT, NOW ONLY ON PRECEDEX GTT FOR SEDATION. APPEARS TO BE WAKING ALITTLE, EYES OPEN AND MOVING UE. MET WITH PT'S SISTER CAMERON IN ROOM. PT HAS BEEM LIVING WITH HER AND WILL RETURN WITH HER AT DISCHARGE. SHE CONFIRMS PT NOT WORKING, NO PCP AND TAKING NO MEDS. PT HAS NO [employer]AM[employer] ACCOUNT AND DOES NOT OWN HOME OR VEHICLE. INFORMED SISTER QASIM WILL EVAL ONCE MORE AWAKE FOR MEDICAID AND [employer] APPLICATIONS. DISCUSSED IMPORTANCE OF PRIMARY CARE FOLLOW UP PT HAS DIABETES AND HTN AND HX OF CORONARY STENTS. REVIEWED [facility] LOCATIONS AND [facility] LOCATION CLOSEST TO THEIR HOME. NO W/E DC PLANNED. WILL FOLLOW TO ASSIST WITH RESOURCES FOR POST DISCHARGE FOLLOW.
--- NOTE | 2019-05-29 15:00 | NUR ---
SERUM POTASSIUM REPEATED AFTER INFUSION AND WITHIN PARAMATERS. INSULIN DRIP NOW AT 2-3 UNITS PER HOUR KEEPING BLOOD GLUCOSE WITHIN PARAMATERS. TEMPERATURE UP, BLOOD CULTURE SET DRAWN FROM PICC LINE, URINE CULTURE AND SPUTUM CULTURES OBTAINED AND SENT TO LAB. FAMILY IN, FELT HE WAS MORE RESPONSIVE TO THEM. UPDATED THEM TO THE POC AND REASSURANCE GIVEN.
--- NOTE | 2019-05-29 18:00 | NUR ---
LESS RESPONSIVE, TEMPERATURE DOWN, PRECEDEX CONTINUES A 1MG/HR. CONTINUES TO HAVE A LARGE AMT OF ORAL SECRETIONS, BREATHE SOUNDS REMAIN COARSE. TUBE FEEDINGS REMAIN AT 50ML/HR. RESIDUAL WAS 180 ML AFTER NG ADVANCED. URINE OUTPUT GREATER THAN 60 ML/HR.
[2019-05-30] VITALS (43 sets, daily range): BP systolic 110–163; BP diastolic 58–102
[2019-05-30 05:46] LABS: HEMATOCRIT 36.2 % (42.0-52.0); HEMOGLOBIN 11.7 gm/dL (14.0-18.0); MCH 29.8 pg (26.0-34.0); MCHC 32.3 g/dL (28.0-37.0); MCV 92.3 fL (80.0-100.0); PLATELET COUNT 142 thou/uL (150-400); RBC 3.93 mil/uL (4.50-6.00); RDW 14.3 % (10.5-14.5); WBC 6.1 thou/uL (4.0-11.0)
[2019-05-30 05:58] LABS: CALCIUM 8.7 mg/dL (8.5-10.1); POTASSIUM 3.2 mmol/L (3.5-5.1)
--- NOTE | 2019-05-30 07:30 | NUR ---
No events overnight. Have not increased tube feeding due to high residuals (100 cc q 4 hr).
[2019-05-30 08:01] LABS: ABSOLUTE NEUTROPHILS 4.5 thou/uL (1.4-8.2); ANISOCYTOSIS 1+
[2019-05-30 15:53] LABS: BE(vivo) -0.3 mmol/L (-2 to +3); HCO3 25.1 mmol/L (22.0-26.0); PCO2 44.1 mmHg (35.0-45.0); PO2 115.6 mmHg (80.0-100.0); pH 7.373 (7.360-7.450); sO2 98.1 % (92.0-98.0)
--- NOTE | 2019-05-30 16:37 | NUR ---
PT FOLLOWS COMMANDS CONSISTENTLY. FAMILY AT BEDSIDE FOR SUPPORT. LUNGS ARE COARSE. REMAINS ON THE VENT. MCCONNELL TO DD WITH ANTHONY URINE PRESENT. SCDS ON BILATERAL. TOLERATING TUBE FEEDINGS WELL 20 CC RESIDUAL MINIMAL NOTED. REMAINS ON PRECEDIX DRIP. COPIOUS CLEAR SECREATIONS NOTED SUCTIONED WITH ET TUBE AND ORAL SECREATIONS SUCTIONED. NO ISSUES OR CONCERNS NOTED AT THIS TIME.
[2019-05-31] VITALS (45 sets, daily range): BP systolic 106–177; BP diastolic 59–97
[2019-05-31 03:32] LABS: HEMATOCRIT 36.7 % (42.0-52.0); HEMOGLOBIN 11.9 gm/dL (14.0-18.0); MCH 29.9 pg (26.0-34.0); MCHC 32.3 g/dL (28.0-37.0); MCV 92.6 fL (80.0-100.0); RBC 3.96 mil/uL (4.50-6.00); RDW 14.6 % (10.5-14.5); WBC 6.7 thou/uL (4.0-11.0)
[2019-05-31 05:04] LABS: POTASSIUM 3.7 mmol/L (3.5-5.1)
--- NOTE | 2019-05-31 06:28 | NUR ---
PT FOLLOWING COMMANDS ON SEDATION VACATION. PT SLOWLY PROGRESSING TOWARDS GOALS. POSSIBLE CPAP TRIAL TODAY. TITRATING INSULIN GTT.
[2019-05-31 10:45] LABS: BE(vivo) -0.3 mmol/L (-2 to +3); HCO3 24.1 mmol/L (22.0-26.0); PCO2 38.7 mmHg (35.0-45.0); PO2 126.7 mmHg (80.0-100.0); pH 7.413 (7.360-7.450); sO2 98.6 % (92.0-98.0)
--- NOTE | 2019-05-31 16:32 | NUR ---
PT FOLLOWS COMMANDS . LUNGS ARE COARSE. COPIOUS AMONT OF CLEAR SECREATIONS NOTED AND SUCTIONED WITH ET TUBE AND ORAL SECREATIONS NOTED. SCDS ON BILATERAL. ABDOMEN IS ROUND. PT TAKES ASSIST X3 TO MOVE IN BED AND LIFT AND REPOSITION IN THE BED PER NURSING. ATIVAN GIVEN FOR RESTLESS AT TIMES AND APPEARS AGITATIED WITH REMAINING ON THE VENT AT THIS TIME. WILL CONTINUE TO PROGRESS TOWARDS GOALS AND TREATEMETN
[2019-06-01] VITALS (21 sets, daily range): BP systolic 107–172; BP diastolic 60–111
--- NOTE | 2019-06-01 04:32 | NUR ---
PT. SEDATED AND ON VENT. VSS. ONE NON-SUSTAINED RUN OF V-TACH AT 0425, 14 BEATS. NO EVENTS OTHERWISE. ASSESSMENTS AND VITAL SIGNS CHARTED. MEDICATION TITRATION CHARTED. CONTINUE TO FOLLOW POC. PT. READY TO CPAP AGAIN TODAY, WILL CONTINUE TO MONITOR.
--- NOTE | 2019-06-01 10:42 | NUR ---
ASSUMED CARE @ 0700 06/01/19, PT ASSESSMENTS AND VSS COMPLETE PER ICU PROTOCOL. SEDATION VACATION PERFORMED AT 0730. DR HOLT HERE DURING SHIFT TO ROUND, VERBAL ORDERS FOR CPAP TRIAL, RT CALLED TO PLACE PT ON CPAP. CPAP INITIATED AT 1037. WILL CONTINUE TO MONITOR.
[2019-06-01 12:04] LABS: BE(vivo) -1.9 mmol/L (-2 to +3); PO2 116.9 mmHg (80.0-100.0); pH 7.378 (7.360-7.450); sO2 98.2 % (92.0-98.0)
[2019-06-02] VITALS (18 sets, daily range): BP systolic 143–185; BP diastolic 78–95
--- NOTE | 2019-06-02 10:07 | NUR ---
ASSUMED CARE @ 0700 06/02/19, PT ASSESSMENTS AND VSS COMPLETE PER ICU PROTOCOL. PT DID NOT TOLERATE PILLS WITH LITTLE SIPS OF WATER EVIDENCE BY COUGHING AFTER PILLS WERE ADMINISTERED, SPEECH EVALUATION ORDERED, WILL CONTINUE TO MONITOR.
--- NOTE | 2019-06-02 11:31 | NUR ---
PT EXTUBATED YESTERDAY AFTERNOON AND ON NASAL CANNULA. PT IS CONFUSED. NEEDS [facility] TO DO MEDICAID CHAVEZ WHEN ABLE MORE AWAKE.
[2019-06-03] VITALS (24 sets, daily range): BP systolic 112–203; BP diastolic 63–100
--- NOTE | 2019-06-03 18:18 | NUR ---
intermittently restless today, pulling off ekg cables, nibp, tossing pillows out of bed, hanging leg out of side of bed, scooting down in bed, laying crosswise in bed and flopping himself around in bed when repositioning. SR/ST, strong moist coughs then swallowing sputum, lungs clear in upper lobes, dim in bases, tolerating honey thick liquids, pulled at hurd with blood tinged urine. family at bedside providing support.
[2019-06-04] VITALS (23 sets, daily range): BP systolic 136–176; BP diastolic 65–98
--- NOTE | 2019-06-04 06:00 | NUR ---
EARLIER IN EVENING PT WAS EXTREMELY RESTLESS AND THROWING LEGS OVER BED RAIL HALDOL GIVEN PER ORDER. PT NOW IS CALM AND ALERT AND COOPERATIVE. AFEBRILE. SINUS TACH. BATHED. 1000 CC UO THIS SHIFT. WILL CONT TO MONITOR.
[2019-06-04 10:08] LABS: BE(vivo) 1.9 mmol/L (-2 to +3); HCO3 24.7 mmol/L (22.0-26.0); PCO2 33.1 mmHg (35.0-45.0); PO2 62.8 mmHg (80.0-100.0); pH 7.491 (7.360-7.450); sO2 93.9 % (92.0-98.0)
[2019-06-04 11:54] LABS: ABSOLUTE NEUTROPHILS 4.9 thou/uL (1.4-8.2); BASOPHILS 0.9 % (0.0-2.0); EOSINOPHILS 1.9 % (0.0-3.0); HEMATOCRIT 36.7 % (42.0-52.0); MCH 29.7 pg (26.0-34.0); MCHC 32.8 g/dL (28.0-37.0); MCV 90.7 fL (80.0-100.0); MONOCYTES 10.5 % (1.0-8.0); PLATELET COUNT 224 thou/uL (150-400); POLYS 65.7 % (36.0-66.0); RBC 4.04 mil/uL (4.50-6.00); RDW 14.3 % (10.5-14.5); WBC 7.4 thou/uL (4.0-11.0)
[2019-06-04 12:06] LABS: ALBUMIN 2.3 g/dL (3.4-5.0); CALCIUM 9.3 mg/dL (8.5-10.1); CREATININE 0.9 mg/dL (0.7-1.3); TOTAL BILIRUBIN 0.8 mg/dL (<0.1-1.0)
[2019-06-04 12:12] LABS: POTASSIUM 2.6 mmol/L (3.5-5.1)
--- NOTE | 2019-06-04 19:46 | NUR ---
PT PROGRESSING TODAY. UP IN CHAIR WITH PHYSICAL THERAPY FOR 1 1/2-2HRS, THEN TO [facility] HAD LARGE BM, THEN BACK TO BED. PT LESS RESTLESS WHEN HE RETURNED TO BED. TOLERATED INCREASE IN DIET TO PUREED FOOD WITH HONEY THICK LIQUIDS, NO SIGNS OF ASPIRATION, STRONG COUGH. ADEQUATE URINE OUTPUT THROUGHOUT SHIFT. DR. BECKMAN PRESENT- PERFORMING CIWA SCALE. RESTLESS IN BED AT END OF SHIFT, PT UNABLE TO POSITION HIMSELF FOR COMFORT WITHOUT HAVING LEGS HANGING OUT OF SIDE OF BED. POSITIONED FOR COMFORT. ODILON HALL RN GIVEN REPORT.
--- NOTE | 2019-06-04 20:00 | NUR ---
ASSUMED CARE OF PT. AWAKE AND RESTLESS HALDOL 5 MG PO GIVEN HAD A LARGE SOFT BROWN STOOL. DENIES PAIN. SINUS TACH PER MONITOR CURRENTLY KCL IV INFUSING ORDERED VIA JEAN TL PICC REPOSITIONED. WILL CONT TO MONITOR CLOSELY.
--- NOTE | 2019-06-04 21:00 | NUR ---
PT SPOKE WITH HIS SISTER JI FOR SEVERAL MINUTES
--- NOTE | 2019-06-04 22:50 | NUR ---
PT CONT TO BE VERY RESTLESS AND PICKING AT O2 SAT MONITOR. THROWING LEGS OVER SIDE RAIL. Rachel GO ONCOLOGY TRANSPLANT NETWORK MANAGER NOTIFIED. HALDOL 2.5 MG IV ORDERED AND GIVEN. PT ALSO HAD ANOTHER STOOL AT THIS TIME.
--- NOTE | 2019-06-04 23:13 | NUR ---
PRN HYDRALAZINE 20 MG IV FOR HTN.
[2019-06-05] VITALS (9 sets, daily range): BP systolic 137–170; BP diastolic 69–88
--- NOTE | 2019-06-05 00:30 | NUR ---
REPORT RECIEVED FROM ODILON HENSON. A0X1-2, CONFUSED AND RESTLESSS. ON RA. NO SIGNS OF RESP DISTRESS. NO PAIN. WILL CONTINUE TO MONITOR
--- NOTE | 2019-06-05 04:25 | NUR ---
PT EXTREMELY RESTLESS DURING THE NIGHT. HALDOL GIVEN X2 WITH MINIMAL EFFECT. TALKED TO DR. BARRAZA ABOUT PT, GOEDON ORDERED AND GIVEN. MINIMAL RESPSONSE TO GOEDON. SEVERAL ATTEMPTS TO GET OUT OF BED. CONFUSED BUT PLEASANT. PT EDUCATED SEVERAL TIMES ABOUT FALL RISK AND SAFETY. C/O LOWER EXTREMITY PAIN, INFORMED LEAF CONDITIONER HELPER FACUNDO. US OF BLE ORDERED. WILL CONTINUE TO MONITOR PT.
[2019-06-05 06:53] LABS: HEMATOCRIT 34.9 % (42.0-52.0); HEMOGLOBIN 11.4 gm/dL (14.0-18.0); MCH 29.7 pg (26.0-34.0); MCHC 32.7 g/dL (28.0-37.0); RBC 3.84 mil/uL (4.50-6.00); WBC 7.8 thou/uL (4.0-11.0)
[2019-06-05 07:11] LABS: CALCIUM 8.6 mg/dL (8.5-10.1); CREATININE 0.9 mg/dL (0.7-1.3); MAGNESIUM 1.6 mg/dL (1.8-2.4); POTASSIUM 3.1 mmol/L (3.5-5.1)
--- NOTE | 2019-06-05 10:35 | NUR ---
FOLLOWING FOR DC PLANNING. CLINICAL INFO REVIEWED. PT EXTUBATED 06/01/19. REMAINS ENCEPHALOPATHIC AND AT TIMES CONFUSED AND AGITATED. [facility] FOLLOWING AND OBTANED SIGNATURE ON MEDICAID [place]AVE[place] 06/03/19. PROVIDED CLINICAL INFO TO DEEDEE FROM [facility] FOR MEDICAID CHAVEZ. DR. BECKMAN CONSULTED AND SAW PT 06/04/19 FOR MANAGEMENT OF ETOH WITHDRAWAL. PT WORKING WITH THERAPIES AND AT PRESENT MAX ASSIST OF 2 TO PIVOT TRANSFER. WILL LIKELY NEED 5N EVAL. PT LIVES WITH SISTER VIRIDIANA TO RETURN TO HER HOME AT DC.
--- NOTE | 2019-06-05 12:49 | NUR ---
ASSUMED CARE OF THE PT AT 0700. PT IS A HIGH FALL RISK AND WAS FOUND ON THE FLOOR IN THE ROOM DURING ROUNDING. PT HAD BEEN ADVISED TO NOT GET UP ON HIS OWN, BUT IS VERY IMPULSIVE AND REFUSES TO STAY IN THE BED. BED AND CHAIR ALARM ARE IN PLACE, CALL LIGHT IS WITIN REACH AND BED IS IN THE LOWEST POSITION. PTS VITALS ARE STABLE AND PT DENIES ANY HEAD TRAUMA. DOCTOR NOTIFIED. LUNGS ARE CLEAR. PT C/O PAIN IN THE ANKLES AND LEGS, DOCTOR NOTIFIED, SEE EMAR. CALLED FURNITURE PACKER AND REQUESTED A SITTER. WILL CONTINUE TO MONITOR THE PT
--- NOTE | 2019-06-05 14:33 | NUR ---
SPOKE WITH PATIENTS SISTER, WAS ABLE TO UPDATE ALL INFORMATION TO BE FROM HOMELESS TO HER ADDRESS WHERE PATIENT WILL BE RESIDING. PATIENT WILL BE ENROLLED IN THE [facility] PATRIENT MEDICATION ASSISTANCE PROGRAM. WILL FOLLOW PATIENT HERE IN THE HOSPITAL AND HELP WITH GETTING APPOINTMENT AT [facility]. [facility]
--- NOTE | 2019-06-06 01:42 | NUR ---
ASSUMED CARE OF PATIENT AT 1999. ASSESSMENT CHARTED. MEDICATIONS GIVEN PER AUG. PATIENT IS ALERT AND CONFUSED MOST OF THE TIME. PATIENT FORGETS LIMITATIONS OFTEN. PATIENT HAD TRIED TO GET OUT OF BED W SITTER IN ROOM; PRN HALDON GIVEN. VSS, O2 SATS WNL ON RA. LUNGS CTA. PATIENT DENIES PAIN. MCCONNELL IS PATENT, INTACT AND HAS GOOD OUTPUT. FSBS WAS 158-8 UNITS GIVEN. PATIENT REMAINS A MAX ASSIST AND IS ORDERED TO BE ON BEDREST. SECURITY ASSISTED W RESETTLING PATIENT HE TRIED TO GET OUT OF BED EARLIER. CM NOTE REVIEWED; PLAN IS TO CONTINUE TO MONITOR PATIENT AND GET HIM READY TO DC BACK HOME W SISTER. BED ALARM IS ON, SITTER IS AT BEDSIDE. WILL CONTINUE TO MONITOR AND FOLLOW POC
[2019-06-06 04:05] VITALS: BP 169/99
[2019-06-06 08:08] VITALS: BP 175/88
--- NOTE | 2019-06-06 08:32 | NUR ---
PT RESTING IN BED ALERT XS 4. PLEASANT AND COOPERATIVE WITH CARE. TOOK AM MEDS AWAITING BREAKFAST. GIVEN PRN PAIN MED. C/O LE PAIN. BLOOD SUGARS CHECKED. PT HAS SITTER IN ROOM.
[2019-06-06 10:00] LABS: CALCIUM 8.5 mg/dL (8.5-10.1); CREATININE 0.9 mg/dL (0.7-1.3); MAGNESIUM 1.6 mg/dL (1.8-2.4); POTASSIUM 3.1 mmol/L (3.5-5.1)
--- NOTE | 2019-06-06 11:05 | NUR ---
MCCONNELL CATH DCD PER DR SAUER. HAD 200 CC CLEAR YELLOW URINE IN MCCONNELL BAG. NO DISCOMFORT TO PATIENT. PT GIVEN URINAL. PT PLEASANT AND COOPERATIVE WITH CARE.
--- NOTE | 2019-06-06 15:16 | NUR ---
PT UP IN BEDSIDE CHAIR AT THIS TIME. SHAMPOO CAP TO HEAD/HAIR. PT BRUSHING TEETH. PT PLEASANT AND COOPERATIVE WITH CARE. NO PAIN OR RESP DISTRESS AT THIS TIME.
[2019-06-06 16:08] VITALS: BP 148/77
[2019-06-06 19:10] VITALS: BP 152/62
[2019-06-07 03:53] VITALS: BP 134/66
--- NOTE | 2019-06-07 05:07 | NUR ---
PATIENT ALERT AND ORIENTED X4. PATIENT REMAINED CALM ALL NIGHT. NO AGGITATION OR COMBATIVENESS NOTED. CONTINUES TO HAVE A 1:1. PT C/O PAIN, TYLENOL GIVEN WITH GOOD RESULTS. UP TO BSC WITH SBA. SLEPT MOST OF NIGHT. ACCUCHECK WAS 151, RECEIVED 8U SS LISPRO INSULIN. PICC LINE IN UPPER R ARM, PATENT.
--- NOTE | 2019-06-07 07:17 | NUR ---
PT UP IN BEDSIDE CHAIR WATCHING TV. IV FLUIDS INFUSING ORDERED. PT DRINKING NECTAR THICK LIQUIDS. NO PAIN OR RESP DISTRESS AT THIS TIME. PT PLEASANT AND COOPERATIVE WITH CARE. PT HAS SITTER IN ROOM.
[2019-06-07 07:48] VITALS: BP 135/79
[2019-06-07 10:22] LABS: HEMATOCRIT 33.7 % (42.0-52.0); HEMOGLOBIN 10.9 gm/dL (14.0-18.0); MCH 29.8 pg (26.0-34.0); MCHC 32.3 g/dL (28.0-37.0); MCV 92.3 fL (80.0-100.0); RBC 3.66 mil/uL (4.50-6.00); RDW 14.6 % (10.5-14.5); WBC 6.8 thou/uL (4.0-11.0)
[2019-06-07 10:32] LABS: CALCIUM 8.3 mg/dL (8.5-10.1); CREATININE 0.9 mg/dL (0.7-1.3); MAGNESIUM 1.8 mg/dL (1.8-2.4); POTASSIUM 3.8 mmol/L (3.5-5.1)
--- NOTE | 2019-06-07 13:10 | NUR ---
PT MOVING FROM ROOM 436 ON 4 SOUTH TO ROOM 404 ON [address]. PT IS ALERT XS 3-4 IN BEDSIDE CHAIR WITH ALARM ON. PT WATCHING TV AT THIS TIME. NO PAIN OR RESP DISTRESS AT THIS TIME WILL DC SITTER PT IS ALERT AND WILL USE CALL LIGHT. WALKED TO BATHROOM WITH ROLLING WALKER AND SBA ASSIST EARLIER HAD STEADY GAIT.
--- NOTE | 2019-06-07 14:17 | NUR ---
PT TRANSFERED TO ROOM 404 AT THIS TIME. REPORT TO JG CHARGE NURSE ON SENIOR SUITES ALL BELONGINGS PACKED AND SENT TO ROOM 404. INSULIN AND CHART ALSO TRANSFERRED PT W/O PAIN OR RESP DISTRESS AT DISCHARGE
[2019-06-07 15:00] VITALS: BP 129/76
--- NOTE | 2019-06-07 15:54 | NUR ---
PT IS AOX4, FORGETFUL AT TIMES. VSS, C/O PAIN IN RIGHT ANKLE AFTER WALKING TO RESTROOM. NURSE GAVE ORAL PAIN PILL ORDERED. PT REPORTS RELIEF, AMBULATES WITH WALKER. TOLERATES NECTAR THICK FLUID. CALL LIGHT IN REACH, PT CALLS APPROPRIATELY. WILL CONTINUE TO MONITOR PT.
[2019-06-07 19:30] VITALS: BP 149/85
--- NOTE | 2019-06-08 04:30 | NUR ---
PATIENT ALERT AND ORIENTED X4. UP IN CHAIR AT BEGINNING OF SHIFT. UP ADLIB IN ROOM W/O ASSIST. MEDICATED FOR PAIN X2 AT TIME OF NOTE WITH GOOD RESULTS. BS MONITORED PER ORDER.
--- NOTE | 2019-06-08 05:39 | NUR ---
THIS NURSE DISCONTINUED PATIENTS MCCONNELL AT 0530 WITH 1600ML OF CLEAR YELLOW URINE. PATIENT TOLERATED WELL.
[2019-06-08 07:47] VITALS: BP 172/101
--- NOTE | 2019-06-08 09:54 | NUR ---
SW reviewed chart. Pt was transferred to [facility]. [facility] consult ordered today to evaluate pt for possible admission to inpt acute rehab. RIGOBERTO is following to assist as needed with discharge planning.
[2019-06-08 11:54] VITALS: BP 157/82
--- NOTE | 2019-06-08 13:28 | NUR ---
Received report from previous Staff nurse Wendy at 10am. Awake on chair, A+Ox4. On room air. Vital signs stable, with BP elevation noted- as per previous nurse BP meds given as prescribed, asked COUNTY DEMONSTRATOR to recheck BP: 157/82. VA: 90. Assisted in ADLs. With SL at L UA. On blood sugar monitoring- taken and recorded accordingly, sliding scale insulin given as prescribed. On carb controlled diet; tolerating well- no nausea, no vomiting and no abdominal pain noted. Falls risk- falls bundle in place. Pt continent, able to use the bathroom using walker and with standby assist. On nectar thick fluids- tolerating well, able to swallow meds whole w/o difficulty. Assisted in ADLs, able to sit out on the chair.
--- NOTE | 2019-06-08 14:46 | NUR ---
DISCHARGE NOTE: SW reviewed chart and spoke with nursing and attending physician. Pt was transferred to [facility] from over the weekend. [facility] consulted today and can accept pt today. SW notified attending physician. SW met with pt at bedside to provide update and discuss discharge to [facility]. Pt is aware and in agreement with discharge plan. Pt asked SW to contact his sister to let her know. RIGOBERTO spoke with pt's sister, Rosalva, via phone. Rosalva is agreeable with plan and confirms eventual discharge plan is for pt to return to his sister's home. Rosalva will notify pt's other sister, Stephanie of rehab's acceptance. Awaiting final discharge orders at this time. Rehab CM to follow and assist as needed with discharge planning.
[2019-06-08] MEDS ORDERED: FLOMAX0.4 MG PO (14:47)
[2019-06-08] MEDS ORDERED: PRINIVIL20 MG PO (14:48)
[2019-06-08] MEDS ORDERED: AMLODIPINE BESY10 MG PO (14:48)
[2019-06-08] MEDS ORDERED: TRADJENTA5 MG PO (14:49)
[2019-06-08] MEDS ORDERED: LANTUS SUBQ (14:50)
[2019-06-08] MEDS ORDERED: VITAMIN B-1100 M2 PO (14:51)
[2019-06-08] MEDS ORDERED: PRENATAL COMPL1 EACH PO (14:51)
[2019-06-08] MEDS ORDERED: FOLIC ACID1 MG PO (14:51)
== END 2019-06-08 16:37 | DRG 207 ==
LOC: ER 04:47 → 4S 07:57 → ICU 07:57 → EROBS 07:57 → 4N 07:57 → ICU 08:29 → 4S 06-05 10:26 → 4N 06-07 14:29
PROVIDERS: Emergency Medicine; Internal Medicine; Internal Medicine Pulmonary Disease; Nurse Practitioner Acute Care; Pediatrics; ADMIT Hospitalist
DX: J69.0 Pneumonitis due to inhalation of food and vomit (principal); J96.01 Acute respiratory failure with hypoxia; E11.10 Type 2 diabetes mellitus with ketoacidosis without coma; G92 Toxic encephalopathy; E87.2 Acidosis; N17.9 Acute kidney failure, unspecified; K92.2 Gastrointestinal hemorrhage, unspecified; E44.0 Moderate protein-calorie malnutrition; F10.239 Alcohol dependence with withdrawal, unspecified; E87.0 Hyperosmolality and hypernatremia; Z95.5 Presence of coronary angioplasty implant and graft; T17.918A Gastric contents in respiratory tract, part unspecified causing other injury, initial encounter; F10.20 Alcohol dependence, uncomplicated; I25.10 Atherosclerotic heart disease of native coronary artery without angina pectoris; R04.1 Hemorrhage from throat; S09.93XA Unspecified injury of face, initial encounter; E07.9 Disorder of thyroid, unspecified; E66.01 Morbid (severe) obesity due to excess calories; R00.1 Bradycardia, unspecified; I16.0 Hypertensive urgency; F10.229 Alcohol dependence with intoxication, unspecified; E87.6 Hypokalemia; E83.42 Hypomagnesemia; Z87.891 Personal history of nicotine dependence; Z68.34 Body mass index [BMI] 34.0-34.9, adult; X58.XXXA Exposure to other specified factors, initial encounter; Y93.89 Activity, other specified; Y92.89 Other specified places as the place of occurrence of the external cause; Y99.8 Other external cause status; Z28.21 Immunization not carried out because of patient refusal
CPT/HCPCS: 10078; 10790; 27000

== ENCOUNTER 2019-06-08 14:29 | Inpatient (IN) | payer OTHER ==
[~2019-06-08] VITALS: Ht 167.6 cm; Wt 122.9 kg
--- NOTE | ~2019-06-08 | PLAN ---
[facility] [place] [address] REHAB UNIT PLAN OF CARE Name: VALENTIN WINTERS Room #: 511-P ADM IN M.R.#: [id number] Admission: 06/08/19 Attend Phys: Valentin Artis MD Discharge: Date of : 58 Report #: [id number] THIS REPORT FOR: //name// CC: Valentin Artis [facility] physician/PCP DATE OF SERVICE: 06/10/2019 PROGRESS NOTE/OVERALL PLAN OF CARE. SUBJECTIVE: The patient is seen back today in followup. He is in no distress. Last recorded temperature 98.6, pulse 80, respirations 24, blood pressure 167/98. He is alert. No specific complaints today. Lower extremity exam, no focal calf swelling, no palpable cord, no clinical evidence for deep vein thrombosis. Functionally, he has been progressing with transfers, supervision and is now ambulating 175 feet contact guard without a device and is going up and down 4 steps. In occupational therapy, lower body dressing is supervision, upper body dressing is set up. In speech therapy, he is on a mechanical soft diet, nectar thickened liquids. ASSESSMENT: 1. Toxic metabolic encephalopathy. 2. Acute respiratory failure, resolved. 3. Question of peripheral neuropathy of lower extremities with his prior complaints of numbness and tingling. 4. History of low back pain, question of lumbar radiculopathy. 5. Diabetic ketoacidosis, resolved. 6. Diabetes mellitus type 2. PLAN: Lower extremity pain complaints did not appear to be as much of a problem today. He is progressing well with his therapies. Discussion was held with the rehab therapy team yesterday and the plan is for discharge for him next Saturday on 06/16/2019. Speech therapy will be doing a swallow evaluation on him today to see if his diet can be upgraded from the nectar thick liquids. By: [id number] Valentin Artis MD /nt
--- NOTE | ~2019-06-08 | H ---
[facility] [place] [address] HISTORY AND PHYSICAL Name: VALENTIN WINTERS Room #: 511-P [facility] IN .R.#: [id number] Admission: 06/08/19 Attend Phys: Valentin Artis MD Discharge: Date of : 58 Report #: [id number] THIS REPORT FOR: //name// CC: Valentin Artis [facility] physician/PCP DATE OF SERVICE: 06/08/2019 HISTORY AND PHYSICAL/POST-ADMISSION PHYSICIAN EVALUATION HISTORY OF PRESENT ILLNESS: The patient has been admitted for acute in-hospital inpatient rehabilitation. Please see my consult note dictation from 06/08/2019 as well as the history and physical. I agree with the documentation, the examination findings, assessment and plan as noted in the history and physical. The patient was originally admitted unresponsive on 05/23/2019, noted to have a seizure on the way to the hospital. History of ETOH abuse, was diagnosed with acute metabolic encephalopathy. He had acute respiratory failure, significant bradycardia, severe lactic acidosis, history of diabetes mellitus with diabetic ketoacidosis. He was extubated on 06/01/2019. Diabetic ketoacidosis was noted to have resolved. He has been improving toxic metabolic encephalopathy. Bradycardia has stabilized. He is now felt to be ready and has been admitted for acute in-hospital inpatient rehabilitation. He does have the toxic metabolic encephalopathy. As far as past medical history, family history, social history, please see the history and physical. MEDICATIONS: See the medication listing. REVIEW OF SYSTEMS: He does have the bilateral foot numbness with a likely premorbid peripheral neuropathy. PHYSICAL EXAMINATION: GENERAL: Obese 59-year-old male, in no obvious distress. VITAL SIGNS: Temperature 98.5, pulse 81, respirations 22, blood pressure 175/101. Alert, latency to his responses, but will follow basic 1 step commands. HEENT: Facies appeared to be symmetric. CHEST: Sounded clear to auscultation. CARDIOVASCULAR: Regular rate and rhythm. ABDOMEN: Significant obesity, bowel sounds positive, nontender. GENITOURINARY AND RECTAL: Deferred. EXTREMITIES: Functional range of motion of the upper extremity strength grade 4-/5. DTRs are trace to 1. Lower extremities, some decreased sensation, bilateral large toes. Strength is probably a grade 3+ to 4-/5. [address] [address] HISTORY AND PHYSICAL Name: VALENTIN WINTERS Room #: 511-P [facility] IN ..#: [id number] Admission: 06/08/19 Attend Phys: Valentin Artis MD Discharge: Date of : 58 Report #: [id number] ASSESSMENT: 1. Toxic metabolic encephalopathy. 2. Acute respiratory failure. 3. ETOH abuse. 4. Diabetic ketoacidosis noted to have resolved. 5. History of diabetes mellitus. 6. Concern of aspiration pneumonia. 7. Electrolyte abnormalities. 8. Alcohol detoxification with prior psychiatry involvement. PLAN: The patient has been admitted for acute in-hospital inpatient rehabilitation. From a postadmission physician evaluation perspective, there are no relevant changes since the preadmission screening. Please see the above review of prior and current medical and functional conditions and comorbidities. Please see the patient's previous and current functional status. As far as risk of complications, he has multiple medical comorbidities as noted above. Prognosis is reasonably good with estimated length of stay probably at least 7-14 days pending progress. Potential barriers would include his multiple medical comorbidities and decreased functional status. We will have the configuration consultant physicians follow with him while he is on the acute in-hospital inpatient rehabilitation loo. By: [id number] Valentin Artsi MD /[facility]
[2019-06-08] MEDS ORDERED: FLOMAX0.4 MG PO (14:47)
[2019-06-08] MEDS ORDERED: AMLODIPINE BESY10 MG PO (14:48)
[2019-06-08] MEDS ORDERED: PRINIVIL20 MG PO (14:48)
[2019-06-08] MEDS ORDERED: TRADJENTA5 MG PO (14:49)
[2019-06-08] MEDS ORDERED: LANTUS SUBQ (14:50)
[2019-06-08] MEDS ORDERED: PRENATAL COMPL1 EACH PO (14:51)
[2019-06-08] MEDS ORDERED: FOLIC ACID1 MG PO (14:51)
[2019-06-08] MEDS ORDERED: VITAMIN B-1100 M2 PO (14:51)
[2019-06-08 16:40] VITALS: BP 144/80
[2019-06-08 20:07] VITALS: BP 148/82
--- NOTE | 2019-06-08 20:21 | NUR ---
ASSUMED CARE OF PT AT 1645, WHEN PT BROUGHT TO UNIT BY NURSING STAFF FROM PREVIOUS UNIT. REPORT RECEIVED BY THIS NURSE FROM PRIOR NURSE ON PREVIOUS UNIT PRIOR TO TRANSFER TO UNIT. PT ASSISTED INTO RECLINER BY NURSING STAFF. ADMISSION ASSESSMENT, VITAL SIGNS, CONSENTS, AND EDUCATION COMPLETED. PT ACCU CHECK ACHS. MEDICAITON LIST FAXED TO PHARMACY. PT REPORTS BLE PAIN DESCRIPED BURNING, STATES THAT PAIN IS WORST WHEN NOT ELEVATED OR HE IS NOT WALKING. GENERALIZED EDEMA, NO NOTED SOB, HR REGULAR AND LUNG SOUNDS CLEAR OVER DIMINISHED. CONSENTS NOT CALLED AT THIS TIME, ONCOMMING NURSE NOTIFIED. FALL PRECATIONS IN PLACE AND NURSING WILL CONTINUE TO MONITOR.
--- NOTE | 2019-06-09 04:39 | NUR ---
PATIENT STEADY UP TO TOILET OR USING URINAL AT BEDSIDE AND THAT'S A GOOD THING BECAUSE IS USUALLY DECLINING USE OF CALL LIGHT, GAIT BELT, OR WALKER. HE DOES WAIT FOR US TO GET TO HIS ROOM AND OFFER STANDBY ASSIST. TYLENOL HELPFUL FOR LEFT ANKLE PAIN. DRINKING NECTAR THICK LIQUIDS WITHOUT STRAW.
[2019-06-09 05:28] LABS: HEMATOCRIT 36.8 % (42.0-52.0); HEMOGLOBIN 11.7 gm/dL (14.0-18.0); MCH 29.4 pg (26.0-34.0); MCHC 31.9 g/dL (28.0-37.0); MCV 92.2 fL (80.0-100.0); RBC 3.99 mil/uL (4.50-6.00); RDW 14.8 % (10.5-14.5); WBC 7.2 thou/uL (4.0-11.0)
[2019-06-09 05:30] LABS: ANION GAP 7 mmol/L (7-16); BUN 5 mg/dL (7-18); CALCIUM 8.7 mg/dL (8.5-10.1); CHLORIDE 103 mmol/L (98-107); CO2 29 mmol/L (21-32); CREATININE 0.8 mg/dL (0.7-1.3); GLUCOSE 119 mg/dL (74-106); POTASSIUM 3.8 mmol/L (3.5-5.1); SODIUM 139 mmol/L (136-145)
[2019-06-09 08:23] VITALS: BP 175/101
--- NOTE | 2019-06-09 10:00 | NUR ---
chart review. pt up in chair working with speech therapy. intro to dcp, and team meeting. pt able to make his needs know, pleasant with confusion and forgetfulness. pt stated " live with my sister, they both said they will help me out. [place] [facility] [place] in [place]. ok thank you"/deandre. will cont following as needed for dc needs.
--- NOTE | 2019-06-09 13:27 | NUR ---
team meeting, recommendation: dc sat, possible have to vouch for pt medication if sister cant afford them, will need [facility] after dc home with sister.
[2019-06-09 19:16] VITALS: BP 167/98
--- NOTE | 2019-06-09 20:29 | NUR ---
ASSUMED CARE OF PT AT APPROX 0700. PT IS ALERT AND ORIENTED, ASSESSMENT CHARTED. PT VERY COOPERATIVE AND FRIENDLY. PT C/O PAIN IN BACK AND LE. ELVATED LEGS FOR RELIEF. INNA HOSE IN PLACE THIS EVENING. DENIES ANY OTHER FURTHER CONCERNS OR COMPLAINTS. NAD NOTED THIS SHIFT. WILL CONT. TO MONITOR.
--- NOTE | 2019-06-10 04:19 | NUR ---
TYLENOL GIVEN AROUND MIDNIGHT TO PATIENT WHO WAS UP IN A CHAIR WITH LEGS ELEVATED IN ORDER TO MINIMIZE PAIN JUST ENOUGH TO GET SOME SLEEP. HAS HAD LIMITED SUCCESS, BUT DID DOZE OFF FOR A WHILE. PLEASANT, USING CALL LIGHT TO ASK FOR SBA UP TO BATHROOM, HAS STEADY GAIT.
[2019-06-10 08:28] VITALS: BP 162/97
[2019-06-10 09:12] LABS: URINE BILIRUBIN NEGATIVE (Negative); URINE BLOOD NEGATIVE (Negative); URINE CLARITY CLEAR; URINE COLOR YELLOW; URINE GLUCOSE-RANDOM* NEGATIVE (Negative); URINE KETONES NEGATIVE (Negative); URINE LEUKOCYTES-REFLEX NEGATIVE (Negative); URINE NITRITE-REFLEX NEGATIVE (Negative); URINE PROTEIN (DIPSTICK) NEGATIVE (Negative); URINE SPECIFIC GRAVITY 1.015 (1.005-1.035)
[2019-06-10 10:30] LABS: CHOLESTEROL 193 mg/dL (<200); HDL CHOLESTEROL 24 mg/dL (>40); LDL CHOLESTEROL 138 mg/dL (<100); TRIGLYCERIDE 155 mg/dL (<150); VLDL 31 mg/dL (<40)
[2019-06-10 10:35] LABS: FOLIC ACID 19.4 ng/mL (8.6-58.9)
--- NOTE | 2019-06-10 12:27 | HC ---
[facility] [place] [address] CONSULTATION Name: VALENTIN WINTERS Room #: 511-P [facility] IN ..#: [id number] Admission: 06/08/19 Attend Phys: Valentin Artis MD Discharge: Date of : 58 Report #: [id number] THIS REPORT FOR: //name// CC: Valentin Artis [facility] physician/PCP DATE OF SERVICE: 06/09/2019 ENDOCRINE CONSULTATION NOTE CONSULTING PHYSICIAN: Dr. Artis. REASON FOR CONSULTATION: Type 2 diabetes mellitus. HISTORY OF PRESENT ILLNESS: This is a 59-year-old male patient whose medical background is significant for multiple medical issues including type 2 diabetes mellitus, obesity, and alcoholism. The patient was admitted to [facility] over a week ago in a comatose state and he was shortly thereafter found to be in DKA. The patient also developed respiratory failure and needed support with mechanical ventilation for an extended period of time. Also, the patient developed what was believed to be a seizure in the context of alcohol withdrawal. During that period of time, the patient was treated aggressively with intravenous fluids, intravenous insulin, and respiratory support as well as with other necessary medical lines of treatment. He recovered well since then. The patient notes that he has had type 2 diabetes mellitus for many years and that he was maintained on a combination of insulin and Invokana. Although, he was unable to specify further on the details of his insulin therapy, he does note that he was without any insulin or Invokana due to limited financial access for more than 2 months prior to presentation. As he recovered from DKA and the other acute medical urgencies, he was transitioned to a combination of Lantus insulin 36 units daily and Tradjenta 5 mg daily with which he has done reasonably well until his admission to the rehab unit yesterday. Also, the patient is known to have hypertension and is currently treated with amlodipine and lisinopril. The patient's background is significant for coronary artery disease, status post coronary arterial stent placements. REVIEW OF SYSTEMS: CONSTITUTIONAL: Fatigue and tiredness, but no fever or chills. HEENT: Negative for sinus pain and ear drainage. PULMONARY: Shortness of breath and cough, but not hemoptysis. [facility] [address] [place] [address] CONSULTATION Name: VALENTIN WINTERS Room #: 511-P [facility] IN [facility].#: [id number] Admission: 06/08/19 Attend Phys: Valentin Artis MD Discharge: Date of : 58 Report #: [id number] CARDIAC: No chest pain, but occasional flutters. He has lower extremity edema. GASTROINTESTINAL: Noted for an abdominal distention, abdominal discomfort, and occasional nausea, but no vomiting. NEUROLOGY: Lightheadedness, dizziness, and numbness, but not loss of consciousness or severe frequent headaches. MUSCULOSKELETAL: Diffuse joint and muscle aches and pains and the lower extremity swelling. Otherwise, the review of systems is noncontributory unless mentioned in the HPI. PAST MEDICAL HISTORY: 1. Type 2 diabetes mellitus. 2. Hypertension. 3. Alcohol abuse. 4. Obesity. 5. Obstructive sleep apnea. 6. Coronary artery disease, status post two stent placements. 7. Recent occurrence of acute respiratory failure with hypoxemia. 8. Recent seizures, probably due to alcohol withdrawal. 9. BPH. CURRENT MEDICATIONS: Flomax 0.4 mg daily, amlodipine 10 mg daily, lisinopril 20 mg daily, linagliptin 5 mg daily, Lantus insulin 36 units daily, folic acid 1 mg daily, vitamin B1 of 100 mg daily, and complete vitamin. ALLERGIES: No known drug allergies. FAMILY HISTORY: Noncontributory. SOCIAL HISTORY: The patient drank alcohol actively all the way to his admission to [facility]. He has never been a smoker. PHYSICAL EXAMINATION: GENERAL: Pleasant male patient, who is not in the apparent pain or distress. VITAL SIGNS: Blood pressure is 175/101 mmHg, heart rate is 81 beats per minute, respiration 22 per minute, and temperature 36.9 degrees. CONSTITUTIONAL: The patient is sitting comfortably in his chair, not in apparent pain or distress. HEENT: Anicteric sclerae. Intact extraocular motions. NECK: Supple, without JVD, carotid bruits, or lymphadenopathy. I do not appreciate thyromegaly. CHEST: Clear to auscultation with moderate entry bilaterally. Scattered rales and rhonchi. HEART: Regular rate and rhythm without murmurs or gallops. ABDOMEN: Obese, but soft and lax without tenderness or organomegaly. No guarding. Active bowel sounds. EXTREMITIES: The lower extremity exam is noted for bilateral edema with stasis [address] [address] CONSULTATION Name: VALENTIN WINTERS Room #: 511-P [facility] IN M.R.#: [id number] Admission: 06/08/19 Attend Phys: Valentin Artis MD Discharge: Date of : 58 Report #: [id number] dermatitis. NEUROLOGIC: Awake, alert, and oriented to time, place, and person. The remainder of his examination is nonfocal. PSYCHIATRIC: Pleasant, interactive, and appropriate. Normal mood and affect. LABORATORY TESTS: Blood glucose values over the past 48 hours have been mostly in the target range of 100-180 mg/dL with two spikes at 200 and 203 mg/dL. Otherwise, sodium is 139, potassium is 3.8, chloride 103, CO2 of 29, anion gap is 7, BUN 5, creatinine 0.8, AST 31, total bilirubin is 0.8, calcium 8.7, phosphorus 3.7, magnesium 1.8, uric acid 2.6, alkaline phosphatase 252, ALT 24, total protein is 7.0, albumin 2.3, EGFR 99, ammonia 18, lactic acid 2.3, total CPK 101, and BNP 5134. White blood count is 7.2, hemoglobin 11.7, and hematocrit 36.8. His hemoglobin A1c was rather elevated at the 11.9%. ASSESSMENT AND PLAN: 1. Type 2 diabetes mellitus. As noted above, this is a patient with a longstanding history of diabetes mellitus and the poor baseline control. Notably, the diabetic emergency in which the patient had presented occurred in the context of a complete absence of medical therapy due to financial constraints and difficulties. The patient presented in DKA and has done well since then with the IV insulin and IV fluid support. Over the past several days, the patient has done rather well with a combination of Lantus insulin 36 units daily and Tradjenta 5 mg daily. He continues to do well. I am inclined to maintain the same regimen for the time being given his good responsiveness. We are actively involving our social director of casework in the bridging of the patient towards insulin coverage as he goes home and hopefully work towards securing a pharma scholarship program to where he can continue to obtain insulin going forward. We will continue to monitor his blood glucose a.c. and at bedtime during his hospital stay. 2. Hypertension. The patient's level of blood pressure control is not adequate today. He continues to be on amlodipine and lisinopril initiated during this hospital stay. He is to continue the current regimen and this will be adjusted and maintained as per the primary hospital team. 3. Benign prostatic hypertrophy. The patient continues to have difficulties with the voiding and he is currently on Flomax. This will be monitored going forward. I certainly appreciate this consultation by Dr. Artis. <ELECTRONICALLY SIGNED> By: Chilo An MD 06/10/19 [id number] Chilo An MD /nt
--- NOTE | 2019-06-10 13:51 | NUR ---
ok per cm cloth shrinking supervisor if have to vouch for some medication at dc. will see if can get dc meds list prior to dc to see if can vouch for them.
--- NOTE | 2019-06-10 14:08 | NUR ---
Patient participated in community reintegration on 06/10/19 with Physical Therapy. Refer to documentation by PT.
--- NOTE | 2019-06-10 14:54 | NUR ---
PATIENT PARTICIPATED IN COMMUNITY RE-INTEGRATION THIS DATE WITH SPEECH THERAPY, REFER TO [facility] FOR DETAILS.
[2019-06-10 19:04] VITALS: BP 154/82
--- NOTE | 2019-06-10 19:32 | NUR ---
ASSUMED CARE OF PT AT 0715. PT IS A&OX4. BLOOD PRESSURE ELEVATED, NEW ORDERS THIS SHIFT FOR LISINOPRIL. PT REPORTS PAIN IN BLE AND LOWER BACK, MANAGED WITH PO MEDICAITONS, PARTICIPATED IN SCHEDULED THERAPIES. MUSCLE RELAXER ORDERED FOR PAIN MANAGEMENT AND PT DENIED THAT HE NEEDED ADDED MEDICATION AT THIS TIME. ACCU CHECKS ACHS AND MANAGED WITH INSULIN. 3+ PITTING EDEMA TO BLE, FEET ELEVATED. CALLS APPROPRIATELY FOR ASSISTANCE. FALL PRECAUTIONS IN PLACE AND NURSING WILL CONTINE TO MONITOR.
--- NOTE | 2019-06-10 23:21 | NUR ---
PT ASSESSMENT DONE AND VSS. MEDS GIVEN AND WELL TOLERATED. FALL PRECAUTIONS IN PLACE. SLEEPING WELL. HOURLY ROUNDING. CALL LIGHT IN REACH. WILL CONTINUE TO MONITOR.
[2019-06-11 06:48] LABS: CREATININE 0.8 mg/dL (0.7-1.3); POTASSIUM 3.7 mmol/L (3.5-5.1)
[2019-06-11 09:00] VITALS: BP 155/81
--- NOTE | 2019-06-11 20:35 | NUR ---
ASSUMED CARE OF PT AT 0715. PT IS A&OX4 AND VITAL SIGNS ARE STABLE. PT REPORTS PAIN IN BLE WITH MORE PAIN IN LLE FOOT. PT REPORTS THAT PAIN FEELS LIKE BURNING. HORSER UP NOTIFIED OF PAIN, NO CHANGES IN MEDICAITON AT THIS TIME. PT REPORTS PAIN MANAGED WITH PO MEDICATIONS. PT PARTICIPATED IN SCHEDULED THERAPIES. PT REPORTS HAVING DIFFICULTY FALLING BACK TO SLEEP AFTER WAKING AT APPROX. 0100. PT IN BED ASLEEP AFTER DINNER. PRODUCTIVE COUGH WITH CLEAR THICK MUCOUS. LUNG SOUNDS CLEAR BILATERALLY IN ALL LOBES. ACCU CHECKS ACHS AND MANAGED WITH INSULIN BID. PT CALLS APPROPRIATELY FOR ASSISTANCE, FALL PRECAUTIONS IN PLACE AND NURSING WILL CONTINUE TO MONITOR.
[2019-06-11 21:33] VITALS: BP 177/96
[2019-06-11 23:00] VITALS: BP 165/84
--- NOTE | 2019-06-12 02:26 | NUR ---
PT ASSESSMENT COMPLETED AND VSS. MEDS GIVEN ORDERED AND WELL TOLERATED. WHITE BELT. STEADY WHEN UP. PRN PAIN MEDICATION WORKING WELL. SUPPORTIVE FAMILY AT BEDSIDE. SLEEPING AT THIS TIME. WILL CONTINUE TO MONITOR FREQUENTLY.
[2019-06-12 09:24] VITALS: BP 146/74
--- NOTE | 2019-06-12 12:55 | NUR ---
team meeting, recommendation: dc 23, home with sister dana. [facility], [facility] already. cont to see what medication need to be vouched for dc.
--- NOTE | 2019-06-12 18:35 | NUR ---
Received awake on bed. Due medications given as prescribed, able to swallow meds w/o difficulty. A+Ox4. On room air. Vital signs stable. Assisted in ADLs. Participating and tolerating therapies. On blood sugar monitoring, taken and recorded accordingly. On carb controlled diet, thin liquids- tolerating well; no nausea, no vomiting and no abdominal pain noted. Complained of pain, lidocaine patch given as prescribed- applied late as per OT's request since pt is to have a shower, applied at 12pm; due PRN tylenol given as prescribed. Able to sit out on chair. Pt complained that he had trouble sleeping last night despite having Trazodone- Dr White informed and prescribed Melatonin as additional medication, pt informed. Pt still with edema noted- advised pt to keep extremities elevated. Able to have 2x bowel movement today- charted.
[2019-06-12 20:00] VITALS: BP 172/102
[2019-06-12 21:20] VITALS: BP 165/84
--- NOTE | 2019-06-13 00:26 | NUR ---
PT ASSESSMENT COMPLETED AND VSS. MEDS GIVEN ORDERED AND WELL TOLERATED. FALL PRECAUTIONS IN PLACE. MOD I IN ROOM. STEADY. PRN PAIN MEDICATION WORKING WELL FOR PAIN. SLEEPING WELL AFTER SLEEP MEDICATION. WILL CONTINUE TO MONITOR FREQUENTLY.
[2019-06-13 07:36] VITALS: BP 159/89
[2019-06-13 19:10] VITALS: BP 154/77
--- NOTE | 2019-06-13 22:52 | NUR ---
PT ASSESSMENT DONE AND VSS. MEDS GIVEN AND WELL TOLERATED. FALL PRECAUTIONS IN PLACE. SLEEPING WELL. HOURLY ROUNDING. CALL LIGHT IN REACH. WILL CONTINUE TO MONITOR.
[2019-06-14 07:30] VITALS: BP 162/86
--- NOTE | 2019-06-14 18:39 | NUR ---
Assumed pt care this am, pt was scheduled for an MRI was informed that this will be done on Saturday and will be reviewed prior to the procedure as per process, MRI sheet faxed. Pt is up at [facility] and had a shower on his own. VS stable, pain managed with medications. POC followed, meals are and medications are tolerated well. Endorsed to the night nurse.
[2019-06-14 19:36] VITALS: BP 158/69
--- NOTE | 2019-06-15 01:16 | NUR ---
PT ALERT AND ORIENTED X 4. MODIFIED INDEPENDENT IN ROOM WITHOUT DIFFICULTY. PT C/O PAIN IN HIS BACK. TYLENOL GIVEN ORDERED. PT APPEARS TO BE SLEEPING ON HOURLY ROUNDS.
[2019-06-15 08:00] VITALS: BP 169/98
[2019-06-15] MEDS ORDERED: NEURONTIN 300300 M1 PO (13:16)
[2019-06-15] MEDS ORDERED: METFORMIN HCL500 MG PO (13:16)
[2019-06-15] MEDS ORDERED: TYLENOL325 MG PO (13:16)
[2019-06-15] MEDS ORDERED: LANTUS SUBQ (13:16)
[2019-06-15] MEDS ORDERED: AMLODIPINE BESY10 MG PO (13:16)
[2019-06-15] MEDS ORDERED: LIDOPATCH1 EACH TRANSDERM (13:16)
[2019-06-15] MEDS ORDERED: PRINIVIL20 MG PO (13:16)
[2019-06-15] MEDS ORDERED: ZANAFLEX4 MG PO (13:16)
[2019-06-15] MEDS ORDERED: MELATONIN5 M1 PO (13:16)
[2019-06-15] MEDS ORDERED: BAYER CHEWABLE81 MG PO (13:16)
[2019-06-15] MEDS ORDERED: VITAMIN B-1100 M2 PO (13:16)
[2019-06-15] MEDS ORDERED: FOLIC ACID1 MG PO (13:16)
[2019-06-15] MEDS ORDERED: HYDROCHLOROTHIA25 M1 PO (13:16)
[2019-06-15] MEDS ORDERED: FLOMAX0.4 MG PO (13:16)
[2019-06-15] MEDS ORDERED: LIPITOR10 MG PO (13:16)
[2019-06-15 15:00] VITALS: BP 98/67
--- NOTE | 2019-06-15 15:13 | NUR ---
medication that need to be vouched medication rx taken to outpt pharmacy [facility] to fill for dc tomorrow, sister dana will be here to take him home. discussed with sister that need to get him dm kit to check bs from [facility] " yes i will get him what he needs, and thank you for all you all are doing for him, i will help him get dr to follow up with after dc. going to [facility] his bed tomorrow and then will pick him up around 1230"/dana. will cont following as needed for dc needs.
--- NOTE | 2019-06-15 15:15 | NUR ---
Nutrition follow up: Pt NA x4 attempted visits to unit. With therapies at various intervals throughout the day. As of 06/11, updated diet order no longer includes nectar thick liquids. Now on 1999 jovanny carb controlled diet w/ vanilla Glucerna supplements BID. PO intake has been excellent the last 3 days per chart review. Eating 100% of every single meal and at least drinking 100% of 2 Glucerna supplements on 06/13 and 06/14 per EMR. Recent BM 06/12. Despite recent A1c being 11.9%, BG very well controlled, ranging 104-155 mg/dl on 06/13-06/14 with metformin and Lantus. Continues on MVI, thiamine, and folic acid for ETOH hx. No new interventions indicated at this time. Low nutrition risk with scheduled discharge tomorrow, 06/16.
[2019-06-15 19:00] VITALS: BP 158/96
--- NOTE | 2019-06-15 19:48 | NUR ---
Assumed care this am , VS stable MRI done today. Informed MD of the request for stronger pain meds since current ones do not have a long tern effect. POC followed, pain managed with medications with partial results seen. Endorsed to the night nurse.
--- NOTE | 2019-06-16 01:46 | NUR ---
PT ALERT AND ORIENTED X 4. MODIFIED INDEPENDENT IN ROOM WITHOUT DIFFICULTY. PT C/O PAIN IN HIS LEFT LEG AND BACK. TYLENOL GIVEN ORDERED. PT SLEEPING AFTER MEDS GIVEN. BED ALARM ON FOR SAFETY. PT APPEARS TO BE SLEEPING ON HOURLY ROUNDS.
--- NOTE | 2019-06-16 06:46 | NUR ---
per elementary librarian pt should have some hh nursing rt going home to his sister jai cortez and he will be on insulin. referral to be sent to [facility] , dr edgar will follow for hh. per [facility] outpt pharmacy vouched medication $464.61, includes insulin syringe and needle. bedside nurse to go dm teach with pt and sister.
[2019-06-16 07:15] VITALS: BP 128/78
[2019-06-16] MEDS ORDERED: NORCO 5-325 TA1 EAC1 PO (10:14)
[2019-06-16 13:13] VITALS: BP 128/78
--- NOTE | 2019-06-16 16:28 | NUR ---
Assumed pt care at 7am.Pt up in chair most of the time waiting to be dc home after lunch.Assessment completed.vss.Pt has good appetite.Took meds and well tolerated.Zita díaz saw pt and wanted Dr Birch or Raymond consulted regarding mri result but both were not available due to holiday.She finally dc pt and asked pt to follow up with Dr Birch as out pt.Dc summary compile and reviewed with pt and sister.RX obtained from outpt pharmacy with family preservation caseworker assist including insulin and given to pt sister. At 1620,pt dc home in [place] with sister.
== END 2019-06-16 16:49 | disposition home health service (06) | DRG 91 ==
PROVIDERS: Internal Medicine; Nurse Practitioner Family; ADMIT Physical Medicine & Rehabilitation
DX: G92 Toxic encephalopathy (principal); J96.00 Acute respiratory failure, unspecified whether with hypoxia or hypercapnia; J96.01 Acute respiratory failure with hypoxia; E11.10 Type 2 diabetes mellitus with ketoacidosis without coma; Z68.42 Body mass index [BMI] 45.0-49.9, adult; E87.0 Hyperosmolality and hypernatremia; E46 Unspecified protein-calorie malnutrition; E66.9 Obesity, unspecified; I10 Essential (primary) hypertension; G47.33 Obstructive sleep apnea (adult) (pediatric); I25.10 Atherosclerotic heart disease of native coronary artery without angina pectoris; Z95.5 Presence of coronary angioplasty implant and graft; F10.10 Alcohol abuse, uncomplicated; N40.1 Benign prostatic hyperplasia with lower urinary tract symptoms; R39.15 Urgency of urination; M54.16 Radiculopathy, lumbar region; E87.6 Hypokalemia; E83.42 Hypomagnesemia; R00.1 Bradycardia, unspecified
CPT/HCPCS: 10112